=== PATIENT | female | born 1960 | race Caucasian/White ===

== ENCOUNTER 2019-04-22 09:24 | Observation (INO) ==
--- NOTE | 2019-04-22 09:37 | Emergency Department Note ---
Disposition Clinical Impression: UTI (urinary tract infection) Disposition: Admitted As Inpatient Condition: Good Time of Disposition: 09:30 Fall HPI - General Chief Complaint: ED Fall Stated Complaint: Fall Time Seen by Provider: 04/22/19 09:25 Source: patient Mode of arrival: EMS Limitations: no limitations Nursing Notes Reviewed: Yes Vital Signs Reviewed: Yes - History of Present Illness HPI Narrative: Patient arrives by EMS stating that she is feeling weak and has fallen several times this last week. She complains of bilateral hip and low back pain. She states that she became more weak after her doctor increased her Prozac dose from 20-40 mg. She had no problems with weakness before this but now is very weak and has trouble moving around. She is not able to eat or drink much as well. She denies any other complaints. She says she is hungry and thirsty. According to EMS the patient was able to stand and pivot and sit down without difficulty to get on the cot. Onset (ago): week(s) (1 week) Fall From: standing Place Fall Occurred: home Loss of Consciousness: none Prolonged Down Time?: no Symptoms Prior to Fall: other (generalized weakness) Context: other (weakness) Location of injury - extremities: Bilateral: hip Severity: mild Quality: aching Associated symptoms (after fall): Reports: weakness - Related Data Home Medications Medication Instructions Recorded Confirmed ALPRAZolam [Xanax 0.5 MG Tablet] 0.5 mg PO BID 04/25/16 04/22/19 Aspirin [Lo-Dose Aspirin EC] 81 mg PO DAILY 04/25/16 04/22/19 Atorvastatin Calcium [Lipitor] 20 mg PO DAILY 04/25/16 04/22/19 Divalproex (12 HR) [Depakote (12 1,000 mg PO BID 04/25/16 04/22/19 HR)] Ergocalciferol (VITAMIN D2) 50,000 unit PO QWEEK MDD 04/25/16 04/22/19 [Vitamin D2 (50,000 UNIT)] Esomeprazole Magnesium [Nexium] 40 mg PO DAILY 04/25/16 04/22/19 Gabapentin [Neurontin] 300 mg PO TID 04/25/16 04/22/19 HYDROcodone/Acet 10/325 mg [[place] 1 tab PO QID PRN 04/25/16 04/22/19 10-325 mg] Insulin ASPART [NovoLOG] 7 unit SQ QID 04/25/16 04/22/19 Insulin Glargine [Lantus] 22 unit SQ HS 04/25/16 04/22/19 Lisinopril [Zestril] 10 mg PO DAILY 04/25/16 04/22/19 Metformin HCl [Glucophage] 1,000 mg PO BID 04/25/16 04/22/19 Metoprolol XL (24 HR) Succ [Toprol 50 mg PO DAILY 04/25/16 04/22/19 XL] Promethazine [Phenergan] 25 mg PO Q6HR 04/25/16 04/22/19 Topiramate [Topamax] 50 mg PO BID 04/25/16 04/22/19 Allergies Allergy/AdvReac Type Severity Reaction Status Date / Time oxycodone [Oxycodone] Allergy Vomiting Verified 04/22/19 13:52 amitriptyline AdvReac See Verified 04/22/19 13:52 Comments morphine AdvReac See Verified 04/22/19 13:51 Comments All systems ED: reviewed and negative except as stated. Review of Systems: As Per HPI Constitutional: Reports: as per HPI, weakness (After increase the Prozac dose) Eyes: Denies: eye pain, eye discharge, vision change ENT ED: Denies: ear pain, throat pain, dental pain, hearing loss, epistaxis, congestion, dysphagia Cardiovascular: Denies: chest pain, palpitations, dyspnea on exertion, edema, syncope Respiratory: Denies: cough, dyspnea, wheezes, hemoptysis, stridor Gastrointestinal: Denies: abdominal pain, nausea, vomiting, diarrhea, constipation, hematemesis, melena, hematochezia Genitourinary: Denies: dysuria, frequency, hematuria, discharge Musculoskeletal: Reports: as per HPI, back pain, arthralgia Integumentary: Denies: rash, abrasion, lesions Neurological: Denies: headache, weakness, numbness, paresthesias, confusion, abnormal gait, vertigo Psychiatric: Reports: depression Endocrine: Denies: fatigue Hematological/Lymphatic: Denies: easy bleeding, easy bruising Allergic/Immunologic: Denies: facial swelling, urticaria Fall PMH - Past Medical History Medical history: Reports: diabetes, hyperlipidemia, hypertension, seizures, other Surgical history: Reports: , orthopedic, other Psychiatric history: Reports: anxiety - Social History Smoking Status: Never smoker Alcohol use: Reports: none Drug use: Reports: none Physical Exam - General Limitations: no limitations General appearance: alert, in no apparent distress - Head Head exam: atraumatic, normocephalic, normal inspection - Eye Eye exam: Present: normal appearance, PERRL, EOMI - ENT ENT exam: normal exam, normal oropharynx, mucous membranes moist - Neck Neck exam: Present: normal inspection, full ROM, trachea midline - Chest Chest inspection: Present: normal inspection, symmetric chest wall rise - Respiratory Respiratory exam: Present: normal lung sounds bilaterally - Cardiovascular Cardiovascular exam: Present: regular rate, normal rhythm, normal heart sounds - Abdominal Exam Abdominal exam: Present: soft, Non-Tender. Absent: tenderness, distention, guarding, rebound, rigidity - Extremities Exam Extremities exam: Present: normal inspection, full ROM, tenderness (Tenderness to bilateral hips and low back. Abrasions that appear healed on her right elbow that are nontender.). Absent: pedal edema - Back Exam Back exam: Present: tenderness - Neurological Exam Neurological exam: Present: alert, oriented X3 - Psychiatric Psychiatric exam: Present: normal affect, normal mood - Skin Skin exam: Present: warm, dry, intact, normal color Course Vital Signs Temperature 97.6 F 04/22/19 09:26 Pulse Rate 121 04/22/19 09:26 Respiratory Rate 20 04/22/19 09:26 Blood Pressure 179/98 04/22/19 09:26 O2 Sat by Pulse Oximetry 97 04/22/19 09:26 Temperature 97.6 F 04/22/19 09:26 Pulse Rate 122 04/22/19 14:13 Respiratory Rate 17 04/22/19 14:13 Blood Pressure 193/96 04/22/19 14:13 O2 Sat by Pulse Oximetry 97 04/22/19 14:13 Oxygen Delivery Oxygen Delivery Room Air Fall - [facility] Narrative Medical decision making narrative: Review the patient's medication list Case was discussed with Dr. Ruiz who has graciously accepted admission - Lab Data Lab results reviewed: Yes I reviewed the patient's lab results. Result diagrams: 04/22/19 10:00 04/22/19 10:00 Lab Results 04/22/19 04/22/19 04/22/19 Range/Units 10:00 10:00 11:10 WBC 10.8 (4.3-11.1) K/mcL RBC 4.02 (3.82-4.97) M/mcL Hgb 13.0 (11.5-15.4) g/dL Hct 38.0 (35.3-44.9) % MCV 94.5 (83.0-100.0) fL MCH 32.3 (28.0-33.3) pg MCHC 34.2 (31.6-35.5) g/dL RDW 13.3 (11.5-14.5) % Plt Count 264 (140-400) K/mcL MPV 9.3 L (9.4-12.4) fL Immature Gran % 0.8 (0-4) % Seg Neutrophils % 71.4 % Lymphocytes % 18.3 % Monocytes % 9.0 % Eosinophils % 0.2 % Basophils % 0.3 % Neutrophils # 7.7 (1.6-8.9) K/mcL Lymphocytes # 2.0 (0.6-4.6) K/mcL Monocytes # 1.0 (0.0-1.3) K/mcL Eosinophils # 0.0 (0.0-0.6) K/mcL Basophils # 0.0 (0.0-0.2) K/mcL Sodium 134 L (136-145) mEq/L Potassium 4.2 (3.5-5.1) mEq/L Chloride 101 (98-107) mEq/L Carbon Dioxide 14 L (23-29) mEq/L BUN 23 H (6-20) mg/dL Creatinine 0.91 (0.60-1.20) mg/dL Est GFR ( Amer) > 60 (> 60) Est GFR (Non-Af Amer) > 60 (> 60) BUN/Creatinine Ratio 25 (6-26) Glucose 304 H (70-105) mg/dL Calculated Osmolality 293 (280-300) Calcium 9.4 (8.6-10.3) mg/dL Total Bilirubin 0.3 (0.3-1.0) mg/dL AST 12 L (13-39) Units/L ALT 7 (7-52) Units/L Alkaline Phosphatase 97 (34-104) Units/L Troponin I < 0.03 (< 0.04) ng/mL Serum Total Protein 7.6 (6.4-8.9) g/dL Albumin 4.0 (3.5-5.7) g/dL Globulin 3.6 H (2.4-3.5) g/dL Albumin/Globulin Ratio 1.1 (1.1-2.2) Urine Color Yellow (Yellow) Urine Clarity Clear (Clear) Urine pH 5.5 (5.0-8.0) pH Units Ur Specific [place] 1.020 (1.010-1.025) Urine Protein Trace (Neg-Trace) mg/dL Urine Glucose (UA) 500 H (Normal) mg/dL Urine Ketones >=160 H (Negative) mg/dL Urine Blood Small H (Negative) Urine Nitrite Negative (Negative) Urine Bilirubin Small H (Negative) Urine Urobilinogen Normal (Normal) mg/dL Ur Leukocyte Esterase Trace H (Negative) Urine Microscopic RBC 3-5 H (0-3) per hpf Urine Microscopic WBC 5-15 H (0-3) per hpf Ur Squamous Epith Cells Few (None-Few) per lpf Urine Bacteria Few (None-Few) per hpf Hyaline Casts Few (None-Few) per lpf Urine Mucus Few (Few) Ur Culture Indicated? YES A (NO) - Radiology Data Radiology results reviewed: Yes I reviewed the patient's radiology results. - EKG Data EKG attestation: Yes I reviewed and interpreted this EKG. EKG results narrative: EKG shows heart rate of [address] intervals 118 ms QRS duration 84 ms QT interval 301 QTC 427 R axis of 60 degrees. Shows sinus tachycardia with borderline ST depression diffuse most likely rate dependent
[2019-04-22] MEDS ORDERED: 0.9 % Sodium Chloride 1,000 ML IVC ONE (09:38)
[2019-04-22 10:06] LABS: Basophils % 0.3 %; Eosinophils % 0.2 %; Immature Granulocytes % 0.8 % (0-4); Lymphocytes % 18.3 %; Mean Corpuscular HGB Conc 34.2 g/dL (31.6-35.5); Mean Corpuscular Hemoglobin 32.3 pg (28.0-33.3); Mean Corpuscular Volume 94.5 fL (83.0-100.0); Mean Platelet Volume 9.3 fL (9.4-12.4); Neutrophils # 7.7 K/mcL (1.6-8.9); Platelet Count 264 K/mcL (140-400); Red Blood Count 4.02 M/mcL (3.82-4.97); Red Cell Distribution Width 13.3 % (11.5-14.5); Segmented Neutrophils % 71.4 %; White Blood Count 10.8 K/mcL (4.3-11.1)
[2019-04-22 10:23] LABS: Alanine Aminotransferase 7 Units/L (7-52); Albumin/Globulin Ratio 1.1 (1.1-2.2); Alkaline Phosphatase 97 Units/L (34-104); Aspartate Amino Transferase 12 Units/L (13-39); BUN/Creatinine Ratio 25 (6-26); Bilirubin,Total 0.3 mg/dL (0.3-1.0); Blood Urea Nitrogen 23 mg/dL (6-20); Calcium 9.4 mg/dL (8.6-10.3); Carbon Dioxide 14 mEq/L (23-29); Chloride 101 mEq/L (98-107); Globulin 3.6 g/dL (2.4-3.5); Glucose 304 mg/dL (70-105); Osmolality,Calculated 293 (280-300); Potassium 4.2 mEq/L (3.5-5.1); Sodium 134 mEq/L (136-145); Total Protein 7.6 g/dL (6.4-8.9); eGFR For African Americans > 60 (> 60); eGFR For Non-African Americans > 60 (> 60)
[2019-04-22 10:27] LABS: Troponin I < 0.03 ng/mL (< 0.04)
[2019-04-22 11:19] LABS: Bilirubin,Urine Small (Negative); Blood,Urine Small (Negative); Clarity,Urine Clear (Clear); Color,Urine Yellow (Yellow); Glucose,Urine (UA) 500 mg/dL (Normal); Ketones,Urine >=160 mg/dL (Negative); Leukocyte Esterase,Urine Trace (Negative); Nitrite,Urine Negative (Negative); PH,Urine 5.5 pH Units (5.0-8.0); Protein,Urine Trace mg/dL (Neg-Trace); Urobilinogen,Urine Normal (Normal)
[2019-04-22 11:30] LABS: Bacteria,Urine Few per hpf (None-Few); Hyaline Casts,Urine Few per lpf (None-Few); Mucus,Urine Few (Few); Squamous Epithelial Cell,Urine Few per lpf (None-Few)
[2019-04-22] MEDS ORDERED: cefTRIAXone 1,000 MG in 0.9 % Sodium Chloride Mini Bag 100 ML IVPB ONE (11:55)
[2019-04-22] MEDS ORDERED: Metoprolol XL (24 HR) Succ 50 MG TAB.ER.24H PO ONE (13:55)
[2019-04-22] MEDS ORDERED: Divalproex (12 HR) 500 MG TABLET PO SCH ×2 (14:00→21:00)
--- NOTE | 2019-04-22 14:36 | Electrocardiograph Report ---
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
[2019-04-22] MEDS ORDERED: Naloxone 0.4 MG/ML INJ IVP PRN (15:27)
[2019-04-22] MEDS ORDERED: Insulin LISPRO 300 UNITS/3 ML VIAL SQ SCH (16:30)
[2019-04-22] MEDS: 0.9 % Sodium Chloride 1,000 ML IVC SCH ×2 (16:55→23:44)
[2019-04-22] MEDS: *HR* Metformin 500 MG TABLET PO SCH (16:56)
[2019-04-22] MEDS: *HR* HYDROcodone/Acet 10/325 mg TABLET PO PRN (16:56)
[2019-04-22] MEDS: Gabapentin 300 MG CAPSULE PO SCH ×2 (16:56→20:58)
[2019-04-22] MEDS: Insulin LISPRO 300 UNITS/3 ML VIAL SQ SCH ×3 (16:56→20:59)
[2019-04-22] MEDS: Topiramate 25 MG TABLET PO SCH (20:58)
[2019-04-22] MEDS: Divalproex (12 HR) 250 MG TABLET PO SCH (20:58)
[2019-04-22] MEDS: ALPRAZolam 0.5 MG TABLET PO SCH (20:58)
[2019-04-22] MEDS: Insulin DETEMIR 100 UNIT/ML X5UNITS SQ SCH (20:59)
[2019-04-23 06:10] LABS: Basophils % 0.3 %; Eosinophils # 0.1 K/mcL (0.0-0.6); Eosinophils % 0.8 %; Hematocrit 38.2 % (35.3-44.9); Hemoglobin 12.5 g/dL (11.5-15.4); Immature Granulocytes % 0.6 % (0-4); Lymphocytes # 3.8 K/mcL (0.6-4.6); Lymphocytes % 37.1 %; Mean Corpuscular HGB Conc 32.7 g/dL (31.6-35.5); Mean Corpuscular Hemoglobin 31.9 pg (28.0-33.3); Mean Corpuscular Volume 97.4 fL (83.0-100.0); Mean Platelet Volume 9.8 fL (9.4-12.4); Monocytes # 1.2 K/mcL (0.0-1.3); Monocytes % 11.4 %; Neutrophils # 5.2 K/mcL (1.6-8.9); Platelet Count 264 K/mcL (140-400); Red Blood Count 3.92 M/mcL (3.82-4.97); Red Cell Distribution Width 13.8 % (11.5-14.5); Segmented Neutrophils % 49.8 %; White Blood Count 10.4 K/mcL (4.3-11.1)
[2019-04-23 06:28] LABS: BUN/Creatinine Ratio 22 (6-26); Blood Urea Nitrogen 17 mg/dL (6-20); Calcium 8.6 mg/dL (8.6-10.3); Carbon Dioxide 21 mEq/L (23-29); Chloride 107 mEq/L (98-107); Glucose 177 mg/dL (70-105); Osmolality,Calculated 290 (280-300); Potassium 4.1 mEq/L (3.5-5.1); Sodium 137 mEq/L (136-145); eGFR For African Americans > 60 (> 60); eGFR For Non-African Americans > 60 (> 60)
[2019-04-23] MEDS: ALPRAZolam 0.5 MG TABLET PO SCH (08:11)
[2019-04-23] MEDS: Aspirin Enteric Coated 81 MG Tablet PO SCH (08:11)
[2019-04-23] MEDS: Divalproex (12 HR) 250 MG TABLET PO SCH ×2 (08:11→21:45)
[2019-04-23] MEDS: *HR* Metformin 500 MG TABLET PO SCH ×2 (08:11→17:10)
[2019-04-23] MEDS: Cholecalciferol (D-3) 1,000 UNIT (25MCG) TABLET PO SCH (08:11)
[2019-04-23] MEDS: Gabapentin 300 MG CAPSULE PO SCH ×3 (08:12→21:45)
[2019-04-23] MEDS: Metoprolol XL (24 HR) Succ 50 MG TAB.ER.24H PO SCH (08:12)
[2019-04-23] MEDS: Insulin LISPRO 300 UNITS/3 ML VIAL SQ SCH ×5 (08:12→21:46)
[2019-04-23] MEDS: Topiramate 25 MG TABLET PO SCH ×2 (08:12→21:45)
--- NOTE | 2019-04-23 09:53 | Internal Med History&Physical ---
Date of Encounter: 04/23/19 Time of Encounter: 09:25 Assessment and Plan (1) Multiple falls Current visit: Yes Status: Acute Suspect primarily due to medication effect. Prozac and Xanax will be held. Depakote level will be checked, orthostatic vital signs will be checked, and further workup as needed. (2) Hypertension Current visit: Yes Status: Chronic Monitor blood pressure and adjust medication doses as needed. Qualifiers: Hypertension type: essential hypertension Qualified Code(s): I10 - Essential (primary) hypertension (3) DM type 2 (diabetes mellitus, type 2) Current visit: Yes Status: Chronic Hemoglobin A1c was 7.2% on 02/24/2019. Continue Lantus, Glucophage, and Accu- Cheks with SSI. 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 Check Depakote level. (5) UTI (urinary tract infection) Current visit: Yes Status: Acute She was given Rocephin in emergency room. Urine culture has been ordered. Qualifiers: Urinary tract infection type: site unspecified Hematuria presence: without hematuria Qualified Code(s): N39.0 - Urinary tract infection, site not specified (6) Chronic low back pain Current visit: Yes Status: Chronic Continue [place] and Neurontin. Qualifiers: Back pain laterality: unspecified Sciatica presence: unspecified whether sciatica present Qualified Code(s): M54.5 - Low back pain; G89.29 - Other chronic pain Internal Medicine - H&P: HPI Chief complaint: Falls Admitted From: Emergency Dept Plans for Post Hospital Care: Home History of present illness: Ms. Rios is a 59 year old female who came to emergency room stating she had multiple falls in the past week since Prozac dose was increased from 20 g daily to 40 mg daily 1 week ago. She reports having no falls on the lower dose. She also takes Xanax for diagnoses of anxiety. She was evaluated emergency room and was found to have evidence of UTI and poorly controlled hypertension. She was admitted to [facility] floor for ongoing care needs. She has anxiety and depression but denies other mental health diagnoses. Past Med Surg Social Fam HX - Past Medical History Medical history: diabetes, hyperlipidemia, hypertension, seizures, other Additional medical history: epilepsy, chronic pain Psychiatric history: anxiety - Past Surgical History Surgical History: , orthopedic, other Additional surgical history: chronic pain,uterine fibroids. baCK - Social History Smoking Status: Current every day smoker Smokeless Tobacco Status: No Alcohol use: none Drug use: none Internal Medicine - H&P: Meds ALPRAZolam [Xanax 0.5 MG Tablet] 0.5 mg PO BID 04/25/16 [History] Aspirin [Lo-Dose Aspirin EC] 81 mg PO DAILY 04/25/16 [History] Atorvastatin Calcium [Lipitor] 20 mg PO DAILY 04/25/16 [History] Divalproex (12 HR) [Depakote (12 HR)] 1,000 mg PO BID 04/25/16 [History] Ergocalciferol (VITAMIN D2) [Vitamin D2 (50,000 UNIT)] 50,000 unit PO QWEEK MDD 04/25/16 [History] Esomeprazole Magnesium [Nexium] 40 mg PO DAILY 04/25/16 [History] Gabapentin [Neurontin] 300 mg PO TID 04/25/16 [History] HYDROcodone/Acet 10/325 mg [[place] 10-325 mg] 1 tab PO QID PRN 04/25/16 [History] Insulin ASPART [NovoLOG] 7 unit SQ QID 04/25/16 [History] Insulin Glargine [Lantus] 22 unit SQ HS 04/25/16 [History] Lisinopril [Zestril] 10 mg PO DAILY 04/25/16 [History] Metformin HCl [Glucophage] 1,000 mg PO BID 04/25/16 [History] Metoprolol XL (24 HR) Succ [Toprol XL] 50 mg PO DAILY 04/25/16 [History] Promethazine [Phenergan] 25 mg PO Q6HR 04/25/16 [History] Topiramate [Topamax] 50 mg PO BID 04/25/16 [History] Allergy/AdvReac Type Severity Reaction Status Date / Time oxycodone [Oxycodone] Allergy Vomiting Verified 06/25/19 13:52 amitriptyline AdvReac See Verified 04/22/19 13:52 Comments morphine AdvReac See Verified 04/22/19 13:51 Comments All Systems PM: A 10-system review of systems was performed and is negative for pertinent findings except as documented above in the HPI. Review of systems: Gen.: She states her weight is been stable for several months Cardiovascular: She has history of hypertension but denies [place] heart failure angina DVT or pulmonary embolus Respiratory: She has smoked since age 14 up to one and a half packs per day. She has not been diagnosed with chronic lung disease and does not use home oxygen. 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 She reports her last seizure was approximately one year ago. She has occasional migraine headaches. She denies large distribution strokes. She has been diagnosed with diabetic peripheral neuropathy. Endocrine: She was diagnosed with DM 2 approximately age 30. She denies thyroid disease or hyperlipidemia Hematology/oncology: She denies blood disorders cancers or anemia Psychiatric: As per history of present illness [place] skeletal: She had low back surgery approximately 2000 and has chronic low back pain. She has DJD but denies gout or other bone joint or muscle disorders. - Constitutional Vitals: Temp Pulse Resp BP Pulse Ox 97.7 F 82 14 159/75 99 04/23/19 06:31 04/23/19 06:31 04/23/19 06:31 04/23/19 06:31 04/23/19 06:31 Exam: Gen.: She is a well-developed well-nourished female resting comfortably in bed who appears lethargic but awakens and answers questions appropriately. HEENT: Head is atraumatic and normal cephalic. Eyes: EOMI. There is no scleral icterus. Mouth: Mucosa is moist. Neck: Supple and nontender. There is no thyromegaly or adenopathy noted. Heart: Regular without murmurs gallops or ectopics Lungs: No wheezes or crackles are heard. Abdomen: Soft and nontender. No masses or guarding are noted. Extremities: There is no cyanosis edema or clubbing noted. Dorsalis pedis and posterior tibial pulses are trace to 1+ palpable bilaterally. Neurologic: Mental status: She is talkative and a good historian. Cranial nerves: Smile is symmetric. Forehead wrinkles bilaterally. Tongue protrudes midline. EOMI. Motor: There is no pronator drift. Cerebellar: Finger to nose is intact bilaterally. Skin: Warm and dry Internal Med - H&P Results - Labs CBC & Chem 7: 04/23/19 05:36 04/23/19 05:36 Labs: Short CBC 04/22/19 04/23/19 Range/Units 10:00 05:36 WBC 10.8 10.4 (4.3-11.1) K/mcL Hgb 13.0 12.5 (11.5-15.4) g/dL Hct 38.0 38.2 (35.3-44.9) % Plt Count 264 264 (140-400) K/mcL Neutrophils # 7.7 5.2 (1.6-8.9) K/mcL BMP 04/22/19 04/23/19 10:00 05:36 Sodium 134 L 137 Potassium 4.2 4.1 Chloride 101 107 Carbon Dioxide 14 L 21 L BUN 23 H 17 Creatinine 0.91 0.76 Glucose 304 H 177 H Calcium 9.4 8.6 Cardiac Enzymes 04/22/19 Range/Units 10:00 Troponin I < 0.03 (< 0.04) ng/mL Liver Function 04/22/19 Range/Units 10:00 Total Bilirubin 0.3 (0.3-1.0) mg/dL AST 12 L (13-39) Units/L ALT 7 (7-52) Units/L Alkaline Phosphatase 97 (34-104) Units/L Albumin 4.0 (3.5-5.7) g/dL Urine 04/22/19 Range/Units 11:10 Urine Color Yellow (Yellow) Urine Clarity Clear (Clear) Urine pH 5.5 (5.0-8.0) pH Units Ur Specific [place] 1.020 (1.010-1.025) Urine Protein Trace (Neg-Trace) mg/dL Urine Glucose (UA) 500 H (Normal) mg/dL - Impressions ITS Impressions Chest X-Ray 04/22/19 09:38 IMPRESSION: No acute cardiopulmonary findings. D/ / Shelby Parson MD / Shelby Parson MD Interpreting Provider: Shelby Parson MD Hip/Pelvis X-Ray 04/22/19 09:38 IMPRESSION: Degenerative changes of the hip joints. No acute osseous abnormality. D/ / Shelby Parson MD / Shelby Parson MD Interpreting Provider: Shelby Parson MD Lumbar Spine X-Ray 04/22/19 09:38 IMPRESSION: No acute abnormalities. If there is persistent clinical concern or focal neurologic deficit consider CT or MRI. Multilevel degenerative changes appear worsened from prior CT abdomen and pelvis 06/20/2011. Stable appearance to prior surgical intervention to lower lumbar spine with orthopedic hardware present at L4-5. No evidence for hardware complication is seen. Grade 1 anterolisthesis of L3 on L4 likely relating to the degenerative changes. D/ / 04/22/2019 10:45:43 Jorge Aceves MD / Zoe Hollis Interpreting Provider: Jorge Aceves MD
[2019-04-23] MEDS: cefTRIAXone 1,000 MG in Water for inj. (sterile) 10 ML IVP SCH (12:11)
[2019-04-23] MEDS: Lactobacillus 1 EACH CAP.SPRINK PO SCH (21:45)
[2019-04-23] MEDS: Insulin DETEMIR 100 UNIT/ML X5UNITS SQ SCH (21:45)
[2019-04-24] MEDS: *HR* Metformin 500 MG TABLET PO SCH ×2 (07:38→16:54)
[2019-04-24] MEDS: Insulin LISPRO 300 UNITS/3 ML VIAL SQ SCH ×5 (07:38→21:23)
[2019-04-24] MEDS: Metoprolol XL (24 HR) Succ 50 MG TAB.ER.24H PO SCH (09:51)
[2019-04-24] MEDS: cefTRIAXone 1,000 MG in Water for inj. (sterile) 10 ML IVP SCH (10:00)
[2019-04-24] MEDS: Cholecalciferol (D-3) 1,000 UNIT (25MCG) TABLET PO SCH (10:01)
[2019-04-24] MEDS: Aspirin Enteric Coated 81 MG Tablet PO SCH (10:01)
[2019-04-24] MEDS: Gabapentin 300 MG CAPSULE PO SCH ×3 (10:01→21:21)
[2019-04-24] MEDS: Topiramate 25 MG TABLET PO SCH ×2 (10:01→21:21)
[2019-04-24] MEDS: Divalproex (12 HR) 250 MG TABLET PO SCH ×2 (10:01→21:22)
[2019-04-24] MEDS: Lactobacillus 1 EACH CAP.SPRINK PO SCH (10:01)
--- NOTE | 2019-04-24 10:46 | Internal Med Progress Note ---
Date of Encounter: 04/24/19 Time of Encounter: 10:22 - Assessment and plan (1) Multiple falls Current Visit: Yes Status: Acute Assessment and plan: April 24. She will continue with therapy intervention and reassessment will be done tomorrow. (2) Hypertension Current Visit: Yes Status: Chronic Assessment and plan: April 24. Blood pressure has been borderline low. Lisinopril will be discontinued. Continue metoprolol. Qualifiers: Hypertension type: essential hypertension Qualified Code(s): I10 - Essential (primary) hypertension (3) DM type 2 (diabetes mellitus, type 2) Current Visit: Yes Status: Chronic Assessment and plan: April 24. Hemoglobin A1c was 7.2% on 02/24/2019. Continue Lantus, Glucophage, and Accu-Cheks with SSI. 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 Depakote level satisfactory at 67. Continue present dose. (5) UTI (urinary tract infection) Current Visit: Yes Status: Acute Assessment and plan: April 24. Urine culture showed no significant growth. Antibiotics and probiotics will be discontinued. Qualifiers: Urinary tract infection type: site unspecified Hematuria presence: without hematuria Qualified Code(s): N39.0 - Urinary tract infection, site not specified (6) Chronic low back pain Current Visit: Yes Status: Chronic Assessment and plan: April 24. Continue [place] and Neurontin. Qualifiers: Back pain laterality: unspecified Sciatica presence: unspecified whether sciatica present Qualified Code(s): M54.5 - Low back pain; G89.29 - Other chronic pain (7) Insomnia Current Visit: Yes Status: Acute Assessment and plan: April 24. She reported she was taking 2 Xanax at bedtime prior to admission. I explained this was probably increasing her risk of falling from excessive sedation. She will remain off this for now. Qualifiers: Insomnia type: unspecified Qualified Code(s): G47.00 - Insomnia, unspecified - Subjective Interval history: April 24. She has no new complaints and feels better. - Constitutional Vitals: Temp Pulse Resp BP Pulse Ox 97.6 F 74 12 98/62 96 04/24/19 07:07 04/24/19 07:07 04/24/19 07:07 04/24/19 07:07 04/24/19 10:08 Exam: She is sitting in a chair at bedside resting comfortably and appears in no acute distress. Her affect is bright and cheerful. She is much more awake and alert today. I reviewed her medications and lab results. I spoke with physical therapist personally about her evaluation. Internal Medicine: Result - Labs CBC & Chem 7: 04/23/19 05:36 04/23/19 05:36 Consult Discharge Plan - Plan Referrals: Odalys Moura, ROUTING EQUIPMENT TENDER [Primary Care Provider] - 1 week
[2019-04-24] MEDS: Insulin DETEMIR 100 UNIT/ML X5UNITS SQ SCH (21:22)
[2019-04-25 07:32] VITALS: BP 159/82
[2019-04-25] MEDS: Topiramate 25 MG TABLET PO SCH (08:12)
[2019-04-25] MEDS: Divalproex (12 HR) 250 MG TABLET PO SCH (08:12)
[2019-04-25] MEDS: *HR* Metformin 500 MG TABLET PO SCH (08:12)
[2019-04-25] MEDS: Aspirin Enteric Coated 81 MG Tablet PO SCH (08:13)
[2019-04-25] MEDS: *HR* HYDROcodone/Acet 10/325 mg TABLET PO PRN (08:13)
[2019-04-25] MEDS: Gabapentin 300 MG CAPSULE PO SCH (08:13)
[2019-04-25] MEDS: Metoprolol XL (24 HR) Succ 50 MG TAB.ER.24H PO SCH (08:13)
[2019-04-25] MEDS: Cholecalciferol (D-3) 1,000 UNIT (25MCG) TABLET PO SCH (08:13)
[2019-04-25] MEDS: Insulin LISPRO 300 UNITS/3 ML VIAL SQ SCH (08:14)
--- NOTE | 2019-04-25 08:48 | Discharge Summary ---
Date of Encounter: 04/26/19 Time of Encounter: 08:44 - Discharge Diagnosis (1) Immobility Priority: Primary Status: Chronic Comments: Pt with immobility with multifactoral etiology including polyneuropathy and osteoarthritis. She was seen by PT and independent in ADLs at time of discharge. She was felt to benefit from home health services, which will be arranged. She is to continue with home therapy. (2) Multiple falls Priority: Secondary Status: Resolved Comments: Exacerbation of immobility with falls likely secondary to fluoxetine dose increase and alprazolam. Fluoxetine was discontinued and patient requested to remain off medication for now rather than continue a reduced dose. She will be using alprazolam only as needed at a reduced dose. She was ambulating without falls at time of discharge. 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 Rios is a 59 year old female that presented to ED with increased falls and generalized weakness which began after recent SSRI dose increase. Initial evaluation and work-up negative outside of possible UTI. Pt was treated with rocephin, which was later discontinued after negative urine culture. Her mobility improved to baseline with supportive care and physical therapy. Home health services will be arranged. She wishes to remain off SSRI and will use benzodiazepine at reduced dose and only as needed. Discharge discussed with: patient - Time Spent with Patient Total time spent providing and/or coordinating discharge services: Time spent: Greater than 30 minutes - Discharge Medications Prescriptions: Continued Gabapentin [Neurontin] 300 mg PO TID Divalproex (12 HR) [Depakote (12 HR)] 1,000 mg PO BID Metoprolol XL (24 HR) Succ [Toprol Xl] 50 mg PO DAILY Lisinopril [Zestril] 10 mg PO DAILY Insulin ASPART [NovoLOG] 7 unit SQ QID Promethazine [Phenergan] 25 mg PO Q6HR HYDROcodone/Acet 10/325 mg [Wrights 10-325 mg] 1 tab PO QID PRN PRN Reason: Pain Topiramate [Topamax] 50 mg PO BID Metformin HCl [Glucophage] 1,000 mg PO BID Insulin Glargine [Lantus] 22 unit SQ HS Esomeprazole Magnesium [Nexium] 40 mg PO DAILY Ergocalciferol (VITAMIN D2) [Vitamin D2 (50,000 UNIT)] 50,000 unit PO QWEEK Atorvastatin Calcium [Lipitor] 20 mg PO DAILY Aspirin [Lo-Dose Aspirin EC] 81 mg PO DAILY Changed ALPRAZolam [Xanax 0.5 MG Tablet] 0.5 tab PO DAILY PRN #0 PRN Reason: Anxiety Home Medications: Aspirin [Lo-Dose Aspirin EC] 81 mg PO DAILY 04/25/16 [History] Atorvastatin Calcium [Lipitor] 20 mg PO DAILY 04/25/16 [History] Divalproex (12 HR) [Depakote (12 HR)] 1,000 mg PO BID 04/25/16 [History] Ergocalciferol (VITAMIN D2) [Vitamin D2 (50,000 UNIT)] 50,000 unit PO QWEEK MDD 04/25/16 [History] Esomeprazole Magnesium [Nexium] 40 mg PO DAILY 04/25/16 [History] Gabapentin [Neurontin] 300 mg PO TID 04/25/16 [History] HYDROcodone/Acet 10/325 mg [Wrights 10-325 mg] 1 tab PO QID PRN 04/25/16 [History] Insulin ASPART [NovoLOG] 7 unit SQ QID 04/25/16 [History] Insulin Glargine [Lantus] 22 unit SQ HS 04/25/16 [History] Lisinopril [Zestril] 10 mg PO DAILY 04/25/16 [History] Metformin HCl [Glucophage] 1,000 mg PO BID 04/25/16 [History] Metoprolol XL (24 HR) Succ [Toprol Xl] 50 mg PO DAILY 04/25/16 [History] Promethazine [Phenergan] 25 mg PO Q6HR 04/25/16 [History] Topiramate [Topamax] 50 mg PO BID 04/25/16 [History] ALPRAZolam [Xanax 0.5 MG Tablet] 0.5 tab PO DAILY PRN #0 04/25/19 [Rx] Allergies/Adverse Reactions: Allergy/AdvReac Type Severity Reaction Status Date / Time oxycodone [Oxycodone] Allergy Vomiting Verified 04/22/19 13:52 amitriptyline AdvReac See Verified 04/22/19 13:52 Comments morphine AdvReac See Verified 04/22/19 13:51 Comments Date of admission: 04/22/19 14:16 Primary care physician: Odalys Moura CNP Consults: 04/23/19 17:42 Consult to Occupational Therapy [CONS] Routine Comment: Evaluate, develop and implement POC Reason for Consult: falls Does patient have active BEDREST order?: No Is patient medically & hemodynamically stable?: Yes Patient assessed for mobility or mobilized this visit?: Yes Consult to Physical Therapy [CONS] Routine Comment: Evaluate, develop and implement POC Reason for Consult: falls Does patient have active BEDREST order?: No Is patient medically & hemodynamically stable?: Yes Patient assessed for mobility or mobilized this visit?: Yes Discharging clinician: Miguel Miranda Anticipated date of discharge: 04/25/19 - Constitutional Vitals: Temp Pulse Resp BP Pulse Ox 98.4 F 94 18 159/82 96 04/25/19 07:23 04/25/19 07:23 04/25/19 07:23 04/25/19 07:23 04/25/19 07:23 Exam: Gen: Lying in bed, NAD HEENT: NC, AT Neck: Trachea midline, no mass Pulm: No respiratory distress, CTAB CV: Normal S1 and S2, RRR Abdomen: Soft, ND, NT Ext: No C/C/E Neuro: No appreciable motor/sensor deficits Skin: Warm and dry, no rash Psych: A&Ox3 - Patient Status Disposition: Home Health Service Condition: Good Functional capacity at discharge: independent ambulation Overall status at discharge: patient is progressing back to baseline - Discharge Instructions Follow Up With: Odalys Moura CNP [Primary Care Provider] - 04/30/19 9:00 am - Diet and Activity Activity: as per physical therapy Diet: advance to your usual diet
--- NOTE | 2019-04-25 09:14 | Physician Discharge Referral ---
Home Health/Hosp Referral Info Transfer to: Home Health Attending Provider: mallorie pruitt Provider in Charge Post Discharge: PCP - Diagnosis (1) Immobility Priority: Primary Status: Chronic (2) Multiple falls Priority: Secondary Status: Resolved (3) Hypertension Priority: Secondary Status: Chronic (4) DM type 2 (diabetes mellitus, type 2) Priority: Secondary Status: Chronic (5) Seizure disorder Priority: Secondary Status: Acute - Respiratory Orders Smoking Cessation: Smoking cessation has been advised. For more information, call the [place] Tobacco Quit Line at 5-996-SVKA-NOW. - Diet/Nutrition Diet/Nutrition Orders: Regular - Activity Activity: List: as per PT - Services Needed Following services are medically necessary services: Nursing, Home Health Aide, Physical Therapy, Occupational Therapy - Transfer Medications Home Medications: Aspirin [Lo-Dose Aspirin EC] 81 mg PO DAILY 04/25/16 [History] Atorvastatin Calcium [Lipitor] 20 mg PO DAILY 04/25/16 [History] Divalproex (12 HR) [Depakote (12 HR)] 1,000 mg PO BID 04/25/16 [History] Ergocalciferol (VITAMIN D2) [Vitamin D2 (50,000 UNIT)] 50,000 unit PO QWEEK MDD 04/25/16 [History] Esomeprazole Magnesium [Nexium] 40 mg PO DAILY 04/25/16 [History] Gabapentin [Neurontin] 300 mg PO TID 04/25/16 [History] HYDROcodone/Acet 10/325 mg [[place] 10-325 mg] 1 tab PO QID PRN 04/25/16 [History] Insulin ASPART [NovoLOG] 7 unit SQ QID 04/25/16 [History] Insulin Glargine [Lantus] 22 unit SQ HS 04/25/16 [History] Lisinopril [Zestril] 10 mg PO DAILY 04/25/16 [History] Metformin HCl [Glucophage] 1,000 mg PO BID 04/25/16 [History] Metoprolol XL (24 HR) Succ [Toprol Xl] 50 mg PO DAILY 04/25/16 [History] Promethazine [Phenergan] 25 mg PO Q6HR 04/25/16 [History] Topiramate [Topamax] 50 mg PO BID 04/25/16 [History] ALPRAZolam [Xanax 0.5 MG Tablet] 0.5 tab PO DAILY PRN #0 04/25/19 [Rx] Allergies/Adverse Reactions: Allergy/AdvReac Type Severity Reaction Status Date / Time oxycodone [Oxycodone] Allergy Vomiting Verified 04/22/19 13:52 amitriptyline AdvReac See Verified 04/22/19 13:52 Comments morphine AdvReac See Verified 04/22/19 13:51 Comments Certification: Further, I certify that my clinical findings support that this patient is homebound (i.e. absences from home require considerable and taxing effort and are for medical reasons or church services or infrequently or short duration when for other reasons) because: considerable immobility secondary to neuropathy and osteoarthritis Homebound Reason: Leaving home requires considerable and taxing effort due to condition Attestation: My signature below is to certify that this patient is under my care and that I, or nurse practitioner, or a physician's dental laboratory assistant working with me, has a [id number] encounter with this patient.
== END 2019-04-25 12:50 | disposition home health service (06) ==
LOC: EMEROOPIK 09:24 → INPPIK 09:24
PROVIDERS: ADMIT Internal Medicine; ATTEND Internal Medicine

== ENCOUNTER 2019-05-29 17:20 | Observation (INO) ==
[2019-05-29] MEDS ORDERED: Acetaminophen 325 MG TABLET PO ONE (17:27)
[2019-05-29] MEDS ORDERED: 0.9 % Sodium Chloride 1,000 ML IVC ONE ×2 (17:27→17:30)
--- NOTE | 2019-05-29 17:31 | Emergency Department Note ---
Disposition Clinical Impression: Acute renal insufficiency, SIRS (systemic inflammatory response syndrome), Weakness, Anorexia Altered mental status Qualifiers: Altered mental status type: disorientation Qualified Code(s): R41.0 - Disorientation, unspecified Disposition: Admitted As Inpatient Condition: Fair Referrals: NONE,PCP [Non-Partnered Physician] - Forms: ED Satisfaction Letter Time of Disposition: 18:53 General Adult HPI - General Chief complaint: ED Psychiatric Symptoms Stated complaint: weight loss and depression Time Seen by Provider: 05/29/19 17:26 Source: patient, EMS Mode of arrival: EMS Limitations: altered mental status Nursing Notes Reviewed: Yes Vital Signs Reviewed: Yes - History of Present Illness HPI Narrative: Patient arrives by EMS with a chief complaint of "cannot eat" and "lost weight". She will repeat herself multiple times about how her weight is down from about 178 pounds 161. She states this is because she is "very depressed" and has had anorexia. She has been eating well since she "had to put my Down" on April 19. When asked questions she often answers starting to talk about her weight and has to be redirected. She denies any headache or visual changes. She denies neck pain or stiffness. She has any chest pain, palpitation, cough or shortness of breath. She has abdominal pain or nausea but states she is just not eating. She has not had diarrhea or bloody or black stools. She denies any urinary co mplaints. Despite her feeling of being "very depressed" she denies any homicidal or suicidal ideation. She is on Prozac states she has been taking her regular medicines. The squad reports that she has had several admissions in the past for psychiatric reasons but I cannot confirm this in the EMR. She is been brought in by EMS emergency department and is seen immediately upon arrival. On arrival she is tachycardic, febrile 101.8 and has a systolic blood pressure between 80 and 90. She denies any localizing complaints for infection. - Related Data Home Medications Medication Instructions Recorded Confirmed Aspirin [Lo-Dose Aspirin EC] 81 mg PO DAILY 04/25/16 05/29/19 Divalproex (12 HR) [Depakote (12 1,000 mg PO BID 04/25/16 05/29/19 HR)] Esomeprazole Magnesium [Nexium] 40 mg PO DAILY 04/25/16 05/29/19 Gabapentin [Neurontin] 300 mg PO TID 04/25/16 05/29/19 HYDROcodone/Acet 10/325 mg [[place] 1 tab PO QID PRN 04/25/16 05/29/19 10-325 mg] Insulin ASPART [NovoLOG] 10 - 14 unit SQ QID 04/25/16 05/29/19 Insulin Glargine [Lantus] 18 unit SQ HS 04/25/16 05/29/19 Lisinopril [Zestril] 10 mg PO DAILY 04/25/16 05/29/19 Metformin HCl [Glucophage] 1,000 mg PO BID 04/25/16 05/29/19 Metoprolol XL (24 HR) Succ [Toprol 50 mg PO DAILY 04/25/16 05/29/19 Xl] Promethazine [Phenergan] 25 mg PO Q6HR 04/25/16 05/29/19 Topiramate [Topamax] 100 mg PO BID 04/25/16 05/29/19 ALPRAZolam [Xanax 0.5 MG Tablet] 0.5 tab PO BID PRN 05/29/19 05/29/19 Butalb/Acetaminophen/Caffeine 1 each PO BID 05/29/19 05/29/19 [Fioricet 50-300-40 mg Capsule] Cyclobenzaprine [Flexeril] 10 mg PO TID 05/29/19 05/29/19 Etodolac [Etodolac ER] 500 mg PO QAM 05/29/19 05/29/19 FLUoxetine HCl [Fluoxetine HCl] 40 mg PO DAILY 05/29/19 05/29/19 Oxybutynin [Ditropan] 5 mg PO BID 05/29/19 05/29/19 Tizanidine HCl [Zanaflex] 2 mg PO HS 05/29/19 05/29/19 Allergies Allergy/AdvReac Type Severity Reaction Status Date / Time oxycodone [Oxycodone] Allergy Vomiting Verified 04/22/19 13:52 amitriptyline AdvReac See Verified 04/22/19 13:52 Comments morphine AdvReac See Verified 04/22/19 13:51 Comments All systems ED: reviewed and negative except as stated. Past Medical History - Past Medical History Attestation: Yes The following information was validated with the patient. Source: patient, old records reviewed, nursing notes reviewed Medical history: Reports: arthritis, diabetes, hyperlipidemia, hypertension, migraine, seizures, other (Chronic low back pain). Denies: cancer, coronary artery disease, CVA, DVT, myocardial infarction, pulmonary embolus, thyroid disease, TIA Surgical history: Reports: , orthopedic, other (Lumbar fixation 2000, hand surgery), other (Ovarian cystectomy) Psychiatric history: Reports: anxiety [employer] history: Reports: uterine fibroids - Social History Smoking Status: Current every day smoker Smokeless Tobacco Status: No Alcohol use: Reports: none Drug use: Reports: none Physical Exam - General Limitations: no limitations General appearance: alert, in no apparent distress - Head Head exam: atraumatic, normocephalic, normal inspection - Eye Eye exam: Present: normal appearance, PERRL, EOMI, other (No light sensitivity). Absent: scleral icterus - ENT ENT exam: normal exam, normal oropharynx, mucous membranes dry - Neck Neck exam: Present: normal inspection, full ROM, trachea midline. Absent: tenderness, meningismus, lymphadenopathy - Chest Chest inspection: Present: normal inspection, symmetric chest wall rise - Respiratory Respiratory exam: Present: normal lung sounds bilaterally. Absent: respiratory distress, wheezes, accessory muscle use, prolonged expiratory phase - Cardiovascular Cardiovascular exam: Present: regular rate, normal rhythm, tachycardia, normal heart sounds - Abdominal Exam Abdominal exam: Present: soft, Non-Tender, normal bowel sounds. Absent: tenderness, distention, guarding, rebound, rigidity, mass, pulsatile mass Abdominal tenderness: Absent: RUQ, RLQ, suprapubic - Extremities Exam Extremities exam: Present: normal inspection, full ROM, normal capillary refill. Absent: tenderness, pedal edema, calf tenderness - Expanded Lower Extremity Exam Neurovascular/Tendon exam: Present: normal capillary refill Gait: not tested/not observed - Back Exam Back exam: Present: normal inspection, full ROM. Absent: tenderness, CVA tenderness (R), CVA tenderness (L) - Neurological Exam Neurological exam: Present: alert, CN II-XII intact (The patient's face appears to be a little flat but is symmetric and motion.), reflexes normal, other (Patient is tremulous. She has negative pronator drift. She both legs up off the bed against gravity). Absent: oriented X3 (Oriented to person and month), motor sensory deficit - Psychiatric Psychiatric exam: Present: anxious - Skin Skin exam: Present: warm, dry, intact, normal color. Absent: rash, diaphoresis, pallor Course Course Narrative: 1739: In obtaining a straight catheter urine, the patient has stated to the nurse that she has been having some burning with urination and some suprapubic abdominal discomfort with urination. 1849: Patient's presentation and workup have been discussed with Dr. Ruiz. Verbal orders have been obtained for her observation. The patient is requesting evaluation for jail placement and touching get her strength back. A social service consult will be ordered for the morning. Vital Signs Temperature 101.8 F H 05/29/19 17:23 Pulse Rate 113 05/29/19 17:23 Respiratory Rate 17 05/29/19 17:23 Blood Pressure 81/54 05/29/19 17:23 O2 Sat by Pulse Oximetry 95 05/29/19 17:23 Temperature 98.4 F 05/29/19 18:45 Pulse Rate 97 05/29/19 18:25 Respiratory Rate 17 05/29/19 18:25 Blood Pressure 100/54 05/29/19 18:25 O2 Sat by Pulse Oximetry 96 05/29/19 18:25 Oxygen Delivery Oxygen Delivery Room Air Medical Decision Making - Medical Records Medical records reviewed: Yes I reviewed the patient's medical records. The squad reported this patient has had previous admissions for psychiatric reasons. I cannot find any record in the EMR of psychiatric decompensation nor admission. - Lab Data Lab results reviewed: Yes I reviewed the patient's lab results. Result diagrams: 05/29/19 17:47 05/29/19 17:47 Lab Results 05/29/19 05/29/19 05/29/19 Range/Units 17:47 17:47 17:47 WBC 8.3 (4.3-11.1) K/mcL RBC 3.93 (3.82-4.97) M/mcL Hgb 12.5 (11.5-15.4) g/dL Hct 38.2 (35.3-44.9) % MCV 97.2 (83.0-100.0) fL MCH 31.8 (28.0-33.3) pg MCHC 32.7 (31.6-35.5) g/dL RDW 14.4 (11.5-14.5) % Plt Count 161 (140-400) K/mcL MPV 10.2 (9.4-12.4) fL Immature Gran % 1.0 (0-4) % Seg Neutrophils % 64.4 % Lymphocytes % 24.9 % Monocytes % 8.2 % Eosinophils % 1.0 % Basophils % 0.5 % Neutrophils # 5.4 (1.6-8.9) K/mcL Lymphocytes # 2.1 (0.6-4.6) K/mcL Monocytes # 0.7 (0.0-1.3) K/mcL Eosinophils # 0.1 (0.0-0.6) K/mcL Basophils # 0.0 (0.0-0.2) K/mcL Sodium 137 (136-145) mEq/L Potassium 4.4 (3.5-5.1) mEq/L Chloride 101 (98-107) mEq/L Carbon Dioxide 14 L (23-29) mEq/L BUN 39 H (6-20) mg/dL Creatinine 1.27 H (0.60-1.20) mg/dL Est GFR ( Amer) 52 L (> 60) Est GFR (Non-Af Amer) 43 L (> 60) BUN/Creatinine Ratio 31 H (6-26) Glucose 211 H (70-105) mg/dL Calculated Osmolality 300 (280-300) Lactic Acid 2.2 (0.5-2.2) mmol/L Calcium 8.9 (8.6-10.3) mg/dL Total Bilirubin 0.3 (0.3-1.0) mg/dL AST 15 (13-39) Units/L ALT 6 L (7-52) Units/L Alkaline Phosphatase 78 (34-104) Units/L Troponin I < 0.03 (< 0.04) ng/mL Serum Total Protein 6.8 (6.4-8.9) g/dL Albumin 3.7 (3.5-5.7) g/dL Globulin 3.1 (2.4-3.5) g/dL Albumin/Globulin Ratio 1.2 (1.1-2.2) Urine Color (Yellow) Urine Clarity (Clear) Urine pH (5.0-8.0) pH Units Ur Specific Art (1.010-1.025) Urine Protein (Neg-Trace) mg/dL Urine Glucose (UA) (Normal) mg/dL Urine Ketones (Negative) mg/dL Urine Blood (Negative) Urine Nitrite (Negative) Urine Bilirubin (Negative) Urine Urobilinogen (Normal) mg/dL Ur Leukocyte Esterase (Negative) Urine Bacteria (None-Few) per hpf Hyaline Casts (None-Few) per lpf Urine Mucus (Few) Ur Culture Indicated? (NO) Salicylates (15.0-30.0) mg/dL Urine Opiates Screen (Uezmel=414) ng/mL Ur Buprenorphine Scrn (Cutoff=5) ng/mL Ur Oxycodone Screen (Cutoff= 100) ng/mL Acetaminophen (10-20) mcg/mL Ur Barbiturates Screen (Xczkts=350) ng/mL Valproic Acid (50-100) mcg/mL Ur Phencyclidine Scrn (Cutoff=25) ng/mL Ur Amphetamines Screen (Grztue=7094) ng/mL U Benzodiazepines Scrn (Xzjqig=662) ng/mL Urine Cocaine Screen (Cutoff= 300) ng/mL U Marijuana (THC) Screen (Cutoff = 50) ng/mL Ur Drug Screen Interp Ethyl Alcohol (Less than 10) mg/dL 05/29/19 05/29/19 05/29/19 Range/Units 17:47 17:47 17:51 WBC (4.3-11.1) K/mcL RBC (3.82-4.97) M/mcL Hgb (11.5-15.4) g/dL Hct (35.3-44.9) % MCV (83.0-100.0) fL MCH (28.0-33.3) pg MCHC (31.6-35.5) g/dL RDW (11.5-14.5) % Plt Count (140-400) K/mcL MPV (9.4-12.4) fL Immature Gran % (0-4) % Seg Neutrophils % % Lymphocytes % % Monocytes % % Eosinophils % % Basophils % % Neutrophils # (1.6-8.9) K/mcL Lymphocytes # (0.6-4.6) K/mcL Monocytes # (0.0-1.3) K/mcL Eosinophils # (0.0-0.6) K/mcL Basophils # (0.0-0.2) K/mcL Sodium (136-145) mEq/L Potassium (3.5-5.1) mEq/L Chloride (98-107) mEq/L Carbon Dioxide (23-29) mEq/L BUN (6-20) mg/dL Creatinine (0.60-1.20) mg/dL Est GFR ( Amer) (> 60) Est GFR (Non-Af Amer) (> 60) BUN/Creatinine Ratio (6-26) Glucose (70-105) mg/dL Calculated Osmolality (280-300) Lactic Acid (0.5-2.2) mmol/L Calcium (8.6-10.3) mg/dL Total Bilirubin (0.3-1.0) mg/dL AST (13-39) Units/L ALT (7-52) Units/L Alkaline Phosphatase (34-104) Units/L Troponin I (< 0.04) ng/mL Serum Total Protein (6.4-8.9) g/dL Albumin (3.5-5.7) g/dL Globulin (2.4-3.5) g/dL Albumin/Globulin Ratio (1.1-2.2) Urine Color Yellow (Yellow) Urine Clarity Clear (Clear) Urine pH 6.0 (5.0-8.0) pH Units Ur Specific Art 1.025 (1.010-1.025) Urine Protein 30 H (Neg-Trace) mg/dL Urine Glucose (UA) Normal (Normal) mg/dL Urine Ketones 40 H (Negative) mg/dL Urine Blood Negative (Negative) Urine Nitrite Negative (Negative) Urine Bilirubin Moderate H (Negative) Urine Urobilinogen Normal (Normal) mg/dL Ur Leukocyte Esterase Negative (Negative) Urine Bacteria Few (None-Few) per hpf Hyaline Casts Few (None-Few) per lpf Urine Mucus Moderate H (Few) Ur Culture Indicated? YES A (NO) Salicylates < 2.5 L (15.0-30.0) mg/dL Urine Opiates Screen (Otehfm=260) ng/mL Ur Buprenorphine Scrn (Cutoff=5) ng/mL Ur Oxycodone Screen (Cutoff= 100) ng/mL Acetaminophen < 10 L (10-20) mcg/mL Ur Barbiturates Screen (Ajurzc=317) ng/mL Valproic Acid 67 (50-100) mcg/mL Ur Phencyclidine Scrn (Cutoff=25) ng/mL Ur Amphetamines Screen (Yuiwzv=8409) ng/mL U Benzodiazepines Scrn (Ctlzaw=642) ng/mL Urine Cocaine Screen (Cutoff= 300) ng/mL U Marijuana (THC) Screen (Cutoff = 50) ng/mL Ur Drug Screen Interp Ethyl Alcohol < 10 (Less than 10) mg/dL 05/29/19 Range/Units 17:51 WBC (4.3-11.1) K/mcL RBC (3.82-4.97) M/mcL Hgb (11.5-15.4) g/dL Hct (35.3-44.9) % MCV (83.0-100.0) fL MCH (28.0-33.3) pg MCHC (31.6-35.5) g/dL RDW (11.5-14.5) % Plt Count (140-400) K/mcL MPV (9.4-12.4) fL Immature Gran % (0-4) % Seg Neutrophils % % Lymphocytes % % Monocytes % % Eosinophils % % Basophils % % Neutrophils # (1.6-8.9) K/mcL Lymphocytes # (0.6-4.6) K/mcL Monocytes # (0.0-1.3) K/mcL Eosinophils # (0.0-0.6) K/mcL Basophils # (0.0-0.2) K/mcL Sodium (136-145) mEq/L Potassium (3.5-5.1) mEq/L Chloride (98-107) mEq/L Carbon Dioxide (23-29) mEq/L BUN (6-20) mg/dL Creatinine (0.60-1.20) mg/dL Est GFR ( Amer) (> 60) Est GFR (Non-Af Amer) (> 60) BUN/Creatinine Ratio (6-26) Glucose (70-105) mg/dL Calculated Osmolality (280-300) Lactic Acid (0.5-2.2) mmol/L Calcium (8.6-10.3) mg/dL Total Bilirubin (0.3-1.0) mg/dL AST (13-39) Units/L ALT (7-52) Units/L Alkaline Phosphatase (34-104) Units/L Troponin I (< 0.04) ng/mL Serum Total Protein (6.4-8.9) g/dL Albumin (3.5-5.7) g/dL Globulin (2.4-3.5) g/dL Albumin/Globulin Ratio (1.1-2.2) Urine Color (Yellow) Urine Clarity (Clear) Urine pH (5.0-8.0) pH Units Ur Specific Art (1.010-1.025) Urine Protein (Neg-Trace) mg/dL Urine Glucose (UA) (Normal) mg/dL Urine Ketones (Negative) mg/dL Urine Blood (Negative) Urine Nitrite (Negative) Urine Bilirubin (Negative) Urine Urobilinogen (Normal) mg/dL Ur Leukocyte Esterase (Negative) Urine Bacteria (None-Few) per hpf Hyaline Casts (None-Few) per lpf Urine Mucus (Few) Ur Culture Indicated? (NO) Salicylates (15.0-30.0) mg/dL Urine Opiates Screen Positive H (Qfaykl=520) ng/mL Ur Buprenorphine Scrn Negative (Cutoff=5) ng/mL Ur Oxycodone Screen Negative (Cutoff= 100) ng/mL Acetaminophen (10-20) mcg/mL Ur Barbiturates Screen Negative (Adoqlt=824) ng/mL Valproic Acid (50-100) mcg/mL Ur Phencyclidine Scrn Negative (Cutoff=25) ng/mL Ur Amphetamines Screen Negative (Vktelz=4523) ng/mL U Benzodiazepines Scrn Positive H (Favnna=990) ng/mL Urine Cocaine Screen Negative (Cutoff= 300) ng/mL U Marijuana (THC) Screen Negative (Cutoff = 50) ng/mL Ur Drug Screen Interp See Below Ethyl Alcohol (Less than 10) mg/dL - Radiology Data Radiology results reviewed: Yes I reviewed the patient's radiology results. Single view chest x-ray is performed. This does not demonstrate evidence for infiltrate, effusion, pneumothorax, foreign body or heart failure. The cardiac silhouette is normal. I do not see abnormality to the osseous structures of the chest. This is on my interpretation. CT head is performed. This is reviewed on bone and soft tissue windows. There is no evidence for acute intracranial bleed, shift, mass or edema. Mastoids and sinuses appear normal. There is no fracture evident. This is on my interpretation. CT is performed of the abdomen and pelvis without IV or oral contrast. This confirms the basal lungs be free of infiltrate, effusion or mass. The liver, spleen and pancreas appear normal. Kidneys are without stone or obstruction. The bowel is basically empty with exception of the transverse colon. There is no acute inflammation, obstruction or perforation present. I do not see evidence for free fluid or free air. Pelvic structures appear normal exception of one likely calcified fibroid. Abdominal wall appears intact. Bony structures are unremarkable. This is on my interpretation. Impressions Chest X-Ray 05/29/19 17:27 IMPRESSION: No acute process. D/ / John Moraes MD / John Moraes MD Interpreting Provider: John Moraes MD Head CT 05/29/19 17:30 IMPRESSION: No acute intracranial abnormality. D/ / Billy Alvarez MD / Billy Alvarez MD Interpreting Provider: Billy Alvarez MD Abdomen/Pelvis CT 05/29/19 17:48 IMPRESSION: Mild superior endplate compression fracture of L1 of indeterminate age but new since 2010. Correlation is recommended. Increased density within the left paramidline anterior abdominal wall subcutaneous fat abutting the skin. Correlation for cellulitis is recommended. D/ / Gisella Trejo Cha, MD / Gisella Trejo Cha, MD Interpreting Provider: Gisella Trejo Cha, MD - EKG Data EKG #1 EKG attestation: Yes I reviewed and interpreted this EKG. EKG shows normal: sinus rhythm, axis, intervals, QRS complexes, ST-T waves Rate: tachycardia (111) Interpretation: no acute changes, other (Sinus tachycardia)
[2019-05-29] MEDS ORDERED: Piperacillin/Tazobactam 3.375 GM in 0.9 % Sodium Chloride Mini Bag 100 ML IVPB ONE (17:48)
[2019-05-29 17:53] LABS: Basophils % 0.5 %; Eosinophils # 0.1 K/mcL (0.0-0.6); Hematocrit 38.2 % (35.3-44.9); Hemoglobin 12.5 g/dL (11.5-15.4); Lymphocytes # 2.1 K/mcL (0.6-4.6); Lymphocytes % 24.9 %; Mean Corpuscular HGB Conc 32.7 g/dL (31.6-35.5); Mean Corpuscular Hemoglobin 31.8 pg (28.0-33.3); Mean Corpuscular Volume 97.2 fL (83.0-100.0); Mean Platelet Volume 10.2 fL (9.4-12.4); Monocytes # 0.7 K/mcL (0.0-1.3); Monocytes % 8.2 %; Neutrophils # 5.4 K/mcL (1.6-8.9); Platelet Count 161 K/mcL (140-400); Red Blood Count 3.93 M/mcL (3.82-4.97); Red Cell Distribution Width 14.4 % (11.5-14.5); Segmented Neutrophils % 64.4 %; White Blood Count 8.3 K/mcL (4.3-11.1)
[2019-05-29 17:56] LABS: Bilirubin,Urine Moderate (Negative); Blood,Urine Negative (Negative); Clarity,Urine Clear (Clear); Color,Urine Yellow (Yellow); Glucose,Urine (UA) Normal (Normal); Ketones,Urine 40 mg/dL (Negative); Leukocyte Esterase,Urine Negative (Negative); Nitrite,Urine Negative (Negative); Protein,Urine 30 mg/dL (Neg-Trace); Specific Gravity,Urine 1.025 (1.010-1.025); Urobilinogen,Urine Normal (Normal)
[2019-05-29 18:07] LABS: Bacteria,Urine Few per hpf (None-Few); Hyaline Casts,Urine Few per lpf (None-Few); Mucus,Urine Moderate (Few)
[2019-05-29 18:12] LABS: Troponin I < 0.03 ng/mL (< 0.04)
[2019-05-29 18:14] LABS: Acetaminophen < 10 mcg/mL (10-20); Alanine Aminotransferase 6 Units/L (7-52); Albumin 3.7 g/dL (3.5-5.7); Albumin/Globulin Ratio 1.2 (1.1-2.2); Alkaline Phosphatase 78 Units/L (34-104); Aspartate Amino Transferase 15 Units/L (13-39); BUN/Creatinine Ratio 31 (6-26); Bilirubin,Total 0.3 mg/dL (0.3-1.0); Blood Urea Nitrogen 39 mg/dL (6-20); Calcium 8.9 mg/dL (8.6-10.3); Carbon Dioxide 14 mEq/L (23-29); Chloride 101 mEq/L (98-107); Ethanol < 10 mg/dL (Less than 10); Globulin 3.1 g/dL (2.4-3.5); Glucose 211 mg/dL (70-105); Osmolality,Calculated 300 (280-300); Potassium 4.4 mEq/L (3.5-5.1); Salicylate < 2.5 mg/dL (15.0-30.0); Sodium 137 mEq/L (136-145); Total Protein 6.8 g/dL (6.4-8.9); eGFR For African Americans 52 (> 60); eGFR For Non-African Americans 43 (> 60)
[2019-05-29 18:15] LABS: Amphetamine Screen,Urine Negative ng/mL (Cutoff=1000); Barbiturate Screen,Urine Negative ng/mL (Cutoff=200); Benzodiazepines Screen,Urine Positive ng/mL (Cutoff=200); Cannabinoid Screen,Urine Negative ng/mL (Cutoff = 50); Cocaine Screen,Urine Negative ng/mL (Cutoff= 300); Opiate Screen,Urine Positive ng/mL (Cutoff=300); Phencyclidine Screen,Urine Negative ng/mL (Cutoff=25)
[2019-05-29] MEDS ORDERED: Mag Hydrox/Al Hydrox/Simeth 30 ML UDC PO PRN (18:56)
[2019-05-29] MEDS ORDERED: Dextrose Gel 15 GM/37.5 ML TUBE PO PRN ×2 (18:56)
[2019-05-29] MEDS ORDERED: Ondansetron ODT 4 MG TAB.RAPDIS SL PRN (18:56)
[2019-05-29] MEDS ORDERED: Naloxone 0.4 MG/ML INJ IVP PRN (18:56)
[2019-05-29] MEDS ORDERED: D5% in Water 1,000 ML IVC PRN (18:56)
[2019-05-29] MEDS ORDERED: *HR* Dextrose 50 % in Water (Syg) 50 ML SYRINGE IVP PRN (18:56)
[2019-05-29] MEDS ORDERED: MOM Conc 10 ML UD.LIQ PO PRN (18:56)
[2019-05-29] MEDS ORDERED: ALPRAZolam 0.5 MG TABLET PO PRN (18:59)
[2019-05-29] MEDS: 0.9 % Sodium Chloride 1,000 ML IVC SCH (19:20)
[2019-05-29] MEDS ORDERED: Insulin DETEMIR 100 UNIT/ML per UNIT SQ ONE (21:45)
[2019-05-29] MEDS: tiZANidine 4 MG TABLET PO SCH (21:47)
[2019-05-29] MEDS: Gabapentin 300 MG CAPSULE PO SCH (21:51)
[2019-05-29] MEDS: Topiramate 100 MG TABLET PO SCH (21:51)
[2019-05-29] MEDS: Divalproex (12 HR) 250 MG TABLET PO SCH (21:51)
[2019-05-30] MEDS: Piperacillin/Tazobactam 3.375 GM in 0.9 % Sodium Chloride Mini Bag 100 ML IVPB SCH ×3 (02:10→17:51)
[2019-05-30] MEDS: 0.9 % Sodium Chloride 1,000 ML IVC SCH ×2 (06:20→10:24)
[2019-05-30 06:42] LABS: BUN/Creatinine Ratio 35 (6-26); Blood Urea Nitrogen 29 mg/dL (6-20); Carbon Dioxide 21 mEq/L (23-29); Chloride 109 mEq/L (98-107); Glucose 117 mg/dL (70-105); Osmolality,Calculated 295 (280-300); Potassium 4.1 mEq/L (3.5-5.1); Sodium 139 mEq/L (136-145); eGFR For African Americans > 60 (> 60); eGFR For Non-African Americans > 60 (> 60)
[2019-05-30 08:25] LABS: Calcium 7.8 mg/dL (8.6-10.3)
[2019-05-30] MEDS ORDERED: FLUoxetine 20 MG CAPSULE PO SCH (09:00)
[2019-05-30] MEDS ORDERED: Diclofenac Sodium (24 HR) 100 MG TABLET PO SCH (09:00)
[2019-05-30] MEDS: Insulin LISPRO 300 UNITS/3 ML VIAL SQ SCH ×3 (09:44→17:51)
[2019-05-30] MEDS: *HR* HYDROcodone/Acet 10/325 mg TABLET PO PRN ×3 (09:50→17:39)
[2019-05-30] MEDS: Divalproex (12 HR) 250 MG TABLET PO SCH ×2 (09:51→20:57)
[2019-05-30] MEDS: Topiramate 100 MG TABLET PO SCH ×2 (09:51→20:58)
[2019-05-30] MEDS: Gabapentin 300 MG CAPSULE PO SCH ×3 (09:51→20:58)
[2019-05-30] MEDS: Aspirin Enteric Coated 81 MG Tablet PO SCH (09:51)
--- NOTE | 2019-05-30 09:54 | Internal Med History&Physical ---
Date of Encounter: 05/30/19 Time of Encounter: 09:20 Assessment and Plan (1) Acute renal insufficiency Current visit: Yes Status: Acute IV fluids have been started. Renal indices will be monitored. (2) Hypertension Current visit: No Status: Chronic Borderline hypotensive. Metoprolol will be held and blood pressure monitored. Qualifiers: Hypertension type: essential hypertension Qualified Code(s): I10 - Essential (primary) hypertension (3) DM type 2 (diabetes mellitus, type 2) Current visit: No Status: Chronic Hemoglobin A1c was 7.2% on 02/24/2019. Recheck in a.m. Continue Lantus/Levemir, Glucophage, and Accu-Cheks with SSI. Qualifiers: Diabetes mellitus chcf insulin use: with chcf use Diabetes mellitus complication status: with neurologic complications Diabetes mellitus complication detail: with polyneuropathy Qualified Code(s): E11.42 - Type 2 diabetes mellitus with diabetic polyneuropathy; Z79.4 - long-term (current) use of insulin (4) Seizure disorder Current visit: No Status: Acute Continue Neurontin, Depakote, and Topamax. (5) Chronic low back pain Current visit: No Status: Chronic Continue [place]. Qualifiers: Back pain laterality: unspecified Sciatica presence: unspecified whether sciatica present Qualified Code(s): M54.5 - Low back pain; G89.29 - Other chronic pain (6) Weakness Current visit: Yes Status: Acute PT and OT evaluations will be ordered. (7) Anxiety and depression Current visit: Yes Status: Chronic Continue Xanax and Prozac. (8) Weight loss Current visit: Yes Status: Acute CT of abdomen and chest x-ray unremarkable. TSH will be ordered and further wor kup as needed. Internal Medicine - H&P: HPI Chief complaint: Weakness Admitted From: Emergency Dept Plans for Post Hospital Care: Home History of present illness: Ms. Rios is a 59 year old female who was brought by EMS to emergency room after a neighbor found patient weak. Patient does not recall coming to emergency room. She reports she has gotten progressively weaker since [facility] discharge 04/25/2019. She states her appetite is poor. She denies vomiting diarrhea or acute pain. She was evaluated in emergency room and was found to have acute renal insufficiency probably secondary to dehydration. She was admitted to [facility] floor for ongoing care needs. She is a rambling historian. She reports home health services were ordered at time of her March [facility] discharge but she states she has not consistently participated with home therapy. She also reports the home health agency has not consistently sent personnel to her house. She initially stated she wished to be discharged to a longterm for a few weeks to gain her strength but later stated she really wanted increased home health services at her home and does not want to go to a SNF. Past Med Surg Social Fam HX - Past Medical History Medical history: arthritis, diabetes, hyperlipidemia, hypertension, migraine, seizures, other Additional medical history: epilepsy, chronic pain Psychiatric history: anxiety, depression - Past Surgical History Surgical History: , orthopedic, other, other Additional surgical history: chronic pain,uterine fibroids. baCK - Social History Smoking Status: Current every day smoker Smokeless Tobacco Status: No Alcohol use: none Drug use: none - Family History Father Living Status: Hx Family Endocrine Disorder: Yes Internal Medicine - H&P: Meds Aspirin [Lo-Dose Aspirin EC] 81 mg PO DAILY 04/25/16 [History] Divalproex (12 HR) [Depakote (12 HR)] 1,000 mg PO BID 04/25/16 [History] Esomeprazole Magnesium [Nexium] 40 mg PO DAILY 04/25/16 [History] Gabapentin [Neurontin] 300 mg PO TID 04/25/16 [History] HYDROcodone/Acet 10/325 mg [[place] 10-325 mg] 1 tab PO QID PRN 04/25/16 [History] Insulin ASPART [NovoLOG] 10 - 14 unit SQ QID 04/25/16 [History] Insulin Glargine [Lantus] 18 unit SQ HS 04/25/16 [History] Lisinopril [Zestril] 10 mg PO DAILY 04/25/16 [History] Metformin HCl [Glucophage] 1,000 mg PO BID 04/25/16 [History] Metoprolol XL (24 HR) Succ [Toprol Xl] 50 mg PO DAILY 04/25/16 [History] Promethazine [Phenergan] 25 mg PO Q6HR 04/25/16 [History] Topiramate [Topamax] 100 mg PO BID 04/25/16 [History] ALPRAZolam [Xanax 0.5 MG Tablet] 0.5 tab PO BID PRN 05/29/19 [History] Butalb/Acetaminophen/Caffeine [Fioricet 50-300-40 mg Capsule] 1 each PO BID 05/29/19 [History] Cyclobenzaprine [Flexeril] 10 mg PO TID 05/29/19 [History] Etodolac [Etodolac ER] 500 mg PO QAM 05/29/19 [History] FLUoxetine HCl [Fluoxetine HCl] 40 mg PO DAILY 05/29/19 [History] Oxybutynin [Ditropan] 5 mg PO BID 05/29/19 [History] Tizanidine HCl [Zanaflex] 2 mg PO HS 05/29/19 [History] Allergy/AdvReac Type Severity Reaction Status Date / Time oxycodone [Oxycodone] Allergy Vomiting Verified 04/22/19 13:52 amitriptyline AdvReac See Verified 04/22/19 13:52 Comments morphine AdvReac See Verified 04/22/19 13:51 Comments All Systems PM: A 10-system review of systems was performed and is negative for pertinent findings except as documented above in the HPI. Review of systems: Review of systems from her March 2019 [facility] hospitalization were reviewed and revi sed as below. Gen.: Her weight has decreased from 80.739 kg on 04/22/2019 to 73.028 kg at present Cardiovascular: She has history of hypertension but denies HI heart failure angina DVT or pulmonary embolus Respiratory: She has smoked since age 14 up to one and a half packs per day. She has not been diagnosed with chronic lung disease and does not use home oxygen. 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 She reports her last seizure was approximately one year ago. She has occasional migraine headaches. She denies large distribution strokes. She has been diagnosed with diabetic peripheral neuropathy. Endocrine: She was diagnosed with DM 2 approximately age 30. She denies thyroid disease or hyperlipidemia Hematology/oncology: She denies blood disorders cancers or anemia Psychiatric: She has anxiety and depression but denies other mental health diagnoses. Hospitalization March 2019 [facility] was due to multiple falls possibly from increased Prozac dose. She has remained on the lower dose 20 mg daily since discharge. [place] skeletal: She had low back surgery approximately 2000 and has chronic low back pain. She has DJD but denies gout or other bone joint or muscle disorders. - Constitutional Vitals: Temp Pulse Resp BP Pulse Ox 97.6 F 86 16 73/55 96 05/30/19 08:49 05/30/19 08:49 05/30/19 08:49 05/30/19 08:49 05/30/19 08:49 Exam: Gen.: She is a well-developed well-nourished female lying in bed who appears in no acute distress. HEENT: Head is atraumatic and normocephalic. Eyes: EOMI. There is no scleral icterus. Mouth: Mucosa is moist. Neck: Supple and nontender. There is no thyromegaly or adenopathy noted. Heart: Regular without murmurs gallops or ectopics Lungs: No wheezes or crackles are heard. Abdomen: Soft and nontender. No masses or guarding are noted. Extremities: There is no cyanosis edema or clubbing noted. Dorsalis pedis and posttibial pulses 1-2 over 2 bilaterally. Neurologic: Mental status: She is talkative and seems to be a reliable historian. Cranial nerves: Smile is symmetric. Forehead wrinkles bilaterally. Tongue protrudes midline. EOMI. Motor: There is no pronator drift. Cerebellar: Finger to nose is intact bilaterally. Skin: Warm and dry Internal Med - H&P Results - Labs CBC & Chem 7: 05/29/19 17:47 05/30/19 05:09 Labs: Short CBC 05/29/19 Range/Units 17:47 WBC 8.3 (4.3-11.1) K/mcL Hgb 12.5 (11.5-15.4) g/dL Hct 38.2 (35.3-44.9) % Plt Count 161 (140-400) K/mcL Neutrophils # 5.4 (1.6-8.9) K/mcL BMP 05/29/19 05/30/19 17:47 05:09 Sodium 137 139 Potassium 4.4 4.1 Chloride 101 109 H Carbon Dioxide 14 L 21 L BUN 39 H 29 H Creatinine 1.27 H 0.84 Glucose 211 H 117 H Calcium 8.9 7.8 L Cardiac Enzymes 05/29/19 Range/Units 17:47 Troponin I < 0.03 (< 0.04) ng/mL Liver Function 05/29/19 Range/Units 17:47 Total Bilirubin 0.3 (0.3-1.0) mg/dL AST 15 (13-39) Units/L ALT 6 L (7-52) Units/L Alkaline Phosphatase 78 (34-104) Units/L Albumin 3.7 (3.5-5.7) g/dL Urine 05/29/19 Range/Units 17:51 Urine Color Yellow (Yellow) Urine Clarity Clear (Clear) Urine pH 6.0 (5.0-8.0) pH Units Ur Specific [place] 1.025 (1.010-1.025) Urine Protein 30 H (Neg-Trace) mg/dL Urine Glucose (UA) Normal (Normal) mg/dL - Impressions ITS Impressions Chest X-Ray 05/29/19 17:27 IMPRESSION: No acute process. D/ / John Moraes MD / John Moraes MD Interpreting Provider: John Moraes MD Head CT 05/29/19 17:30 IMPRESSION: No acute intracranial abnormality. D/ / Billy Alvarez MD / Billy Alvarez MD Interpreting Provider: Billy Alvarez MD Abdomen/Pelvis CT 05/29/19 17:48 IMPRESSION: Mild superior endplate compression fracture of L1 of indeterminate age but new since 2010. Correlation is recommended. Increased density within the left paramidline anterior abdominal wall subcutaneous fat abutting the skin. Correlation for cellulitis is recommended. D/ / Gisella Trejo Cha, MD / Gisella Trejo Cha, MD Interpreting Provider: Gisella Trejo Cha, MD
[2019-05-30] MEDS: tiZANidine 4 MG TABLET PO SCH (20:36)
[2019-05-30] MEDS: Insulin DETEMIR 100 UNIT/ML X5UNITS SQ SCH (20:58)
[2019-05-31] MEDS: Piperacillin/Tazobactam 3.375 GM in 0.9 % Sodium Chloride Mini Bag 100 ML IVPB SCH ×2 (01:36→10:42)
[2019-05-31 05:56] LABS: Basophils % 0.3 %; Eosinophils # 0.1 K/mcL (0.0-0.6); Eosinophils % 1.8 %; Hematocrit 34.7 % (35.3-44.9); Hemoglobin 11.3 g/dL (11.5-15.4); Immature Granulocytes % 0.7 % (0-4); Lymphocytes # 2.1 K/mcL (0.6-4.6); Lymphocytes % 29.6 %; Mean Corpuscular HGB Conc 32.6 g/dL (31.6-35.5); Mean Corpuscular Hemoglobin 31.7 pg (28.0-33.3); Mean Corpuscular Volume 97.2 fL (83.0-100.0); Mean Platelet Volume 10.4 fL (9.4-12.4); Monocytes # 0.5 K/mcL (0.0-1.3); Monocytes % 6.7 %; Neutrophils # 4.3 K/mcL (1.6-8.9); Platelet Count 137 K/mcL (140-400); Red Blood Count 3.57 M/mcL (3.82-4.97); Red Cell Distribution Width 14.4 % (11.5-14.5); Segmented Neutrophils % 60.9 %; White Blood Count 7.1 K/mcL (4.3-11.1)
[2019-05-31 06:21] LABS: BUN/Creatinine Ratio 23 (6-26); Blood Urea Nitrogen 16 mg/dL (6-20); Calcium 8.1 mg/dL (8.6-10.3); Carbon Dioxide 21 mEq/L (23-29); Chloride 109 mEq/L (98-107); Glucose 212 mg/dL (70-105); Osmolality,Calculated 295 (280-300); Sodium 139 mEq/L (136-145); eGFR For African Americans > 60 (> 60); eGFR For Non-African Americans > 60 (> 60)
[2019-05-31 06:31] LABS: Thyroid Stimulating Hormone 2.423 mcIU/mL (0.340-5.600)
[2019-05-31] MEDS: Divalproex (12 HR) 250 MG TABLET PO SCH ×2 (08:39→20:34)
[2019-05-31] MEDS: FLUoxetine 20 MG CAPSULE PO SCH (08:39)
[2019-05-31] MEDS: Topiramate 100 MG TABLET PO SCH ×2 (08:39→20:34)
[2019-05-31] MEDS: Gabapentin 300 MG CAPSULE PO SCH ×3 (08:39→20:34)
[2019-05-31] MEDS: Aspirin Enteric Coated 81 MG Tablet PO SCH (08:39)
[2019-05-31] MEDS: Insulin LISPRO 300 UNITS/3 ML VIAL SQ SCH ×3 (08:40→17:45)
[2019-05-31] MEDS: *HR* HYDROcodone/Acet 10/325 mg TABLET PO PRN ×2 (08:42→14:35)
--- NOTE | 2019-05-31 10:14 | Internal Med Progress Note ---
Date of Encounter: 05/31/19 Time of Encounter: 10:05 - Assessment and plan (1) Acute renal insufficiency Current Visit: Yes Status: Acute Assessment and plan: May 31. Resolved. BUN and creatinine are 16 and 0.70 respectively with estimated GFR 60. Discontinue IV fluids. (2) Hypertension Current Visit: No Status: Chronic Assessment and plan: May 31. Blood pressure stable. Remain off metoprolol and monitor. Qualifiers: Hypertension type: essential hypertension Qualified Code(s): I10 - Essential (primary) hypertension (3) DM type 2 (diabetes mellitus, type 2) Current Visit: No Status: Chronic Assessment and plan: May 31. Hemoglobin A1c pending. Accu-Cheks acceptable. Continue Lantus/Levemir, Glucophage, and Accu-Cheks with SSI. Qualifiers: Diabetes mellitus longterm insulin use: with intermodal dispatcher use Diabetes melli tus complication status: with neurologic complications Diabetes mellitus complication detail: with polyneuropathy Qualified Code(s): E11.42 - Type 2 diabetes mellitus with diabetic polyneuropathy; Z79.4 - long term care administrator (current) use of insulin (4) Seizure disorder Current Visit: No Status: Acute Assessment and plan: May 31. Continue Neurontin, Depakote, and Topamax. (5) Chronic low back pain Current Visit: No Status: Chronic Assessment and plan: May 31. Continue [place]. Qualifiers: Back pain laterality: unspecified Sciatica presence: unspecified whether sciatica present Qualified Code(s): M54.5 - Low back pain; G89.29 - Other chronic pain (6) Weakness Current Visit: Yes Status: Acute Assessment and plan: May 31. Continue PT and OT intervention. (7) Anxiety and depression Current Visit: Yes Status: Chronic Assessment and plan: May 31. Continue prn Xanax and scheduled Prozac (8) Weight loss Current Visit: Yes Status: Acute Assessment and plan: May 31. CT of abdomen and chest x-ray unremarkable. TSH normal. Weight has increased with hydration. Continue to monitor. - Subjective Interval history: May 31. She has no new complaints and feels better. - Constitutional Vitals: Temp Pulse Resp BP Pulse Ox 98.3 F 91 24 107/64 94 05/31/19 07:03 05/31/19 07:03 05/31/19 07:03 05/31/19 07:03 05/31/19 07:03 Exam: She is resting comfortably in bed and appears in no acute distress. She is more focused in conversation today. Her affect is bright and cheerful. I reviewed her medications and lab results. She confirm she is willing to go to a SNF for a few weeks for therapy but wishes to be discharged by June 29. Internal Medicine: Result - Labs CBC & Chem 7: 05/31/19 05:20 05/31/19 05:20 Labs: Short CBC 05/31/19 Range/Units 05:20 WBC 7.1 (4.3-11.1) K/mcL Hgb 11.3 L (11.5-15.4) g/dL Hct 34.7 L (35.3-44.9) % Plt Count 137 L (140-400) K/mcL Neutrophils # 4.3 (1.6-8.9) K/mcL BMP 05/31/19 05:20 Sodium 139 Potassium 4.0 Chloride 109 H Carbon Dioxide 21 L BUN 16 Creatinine 0.70 Glucose 212 H Calcium 8.1 L Consult Discharge Plan - Plan Referrals: Odalys Moura, [facility] [Primary Care Provider] - 1 week
[2019-05-31 11:12] LABS: Estimated Average Glucose 177 mg/dl
[2019-05-31] MEDS: tiZANidine 4 MG TABLET PO SCH (19:49)
[2019-05-31] MEDS: Insulin DETEMIR 100 UNIT/ML X5UNITS SQ SCH (20:34)
[2019-06-01 07:20] VITALS: BP 103/62
[2019-06-01] MEDS: Insulin LISPRO 300 UNITS/3 ML VIAL SQ SCH (08:16)
[2019-06-01] MEDS: Divalproex (12 HR) 250 MG TABLET PO SCH (08:18)
[2019-06-01] MEDS: Aspirin Enteric Coated 81 MG Tablet PO SCH (08:18)
[2019-06-01] MEDS: FLUoxetine 20 MG CAPSULE PO SCH (08:19)
[2019-06-01] MEDS: Topiramate 100 MG TABLET PO SCH (08:19)
[2019-06-01] MEDS: Gabapentin 300 MG CAPSULE PO SCH (08:19)
[2019-06-01] MEDS: *HR* HYDROcodone/Acet 10/325 mg TABLET PO PRN (08:20)
--- NOTE | 2019-06-01 10:25 | Discharge Summary ---
Orders not resulted at time of discharge: Pending orders 05/29/19 18:14 Culture,Blood [] Stat Date of Encounter: 06/01/19 Time of Encounter: 10:15 - Discharge Diagnosis (1) Acute renal insufficiency Priority: Primary Status: Acute (2) Hypertension Priority: Secondary Status: Chronic Qualifiers: Hypertension type: essential hypertension Qualified Code(s): I10 - Essential (primary) hypertension (3) DM type 2 (diabetes mellitus, type 2) Priority: Secondary Status: Chronic Qualifiers: Diabetes mellitus terminal gauger supervisor insulin use: with fpc use Diabetes mellitus complication status: with neurologic complications Diabetes mellitus complication detail: with polyneuropathy Qualified Code(s): E11.42 - Type 2 diabetes mellitus with diabetic polyneuropathy; Z79.4 - senior care (current) use of insulin (4) Seizure disorder Priority: Secondary Status: Chronic (5) Chronic low back pain Priority: Secondary Status: Chronic Qualifiers: Back pain laterality: unspecified Sciatica presence: unspecified whether sciatica present Qualified Code(s): M54.5 - Low back pain; G89.29 - Other chronic pain (6) Weakness Priority: Secondary Status: Acute (7) Anxiety and depression Priority: Secondary Status: Chronic (8) Weight loss Priority: Secondary Status: Acute Hospital course: Ms. Rios is a 59 year old female who was brought by EMS to emergency room after a neighbor found patient weak. Patient does not recall coming to emergency room. She reports she has gotten progressively weaker since [facility] discharge 04/25/2019. She states her appetite is poor. She denies vomiting diarrhea or acute pain. She was evaluated in emergency room and was found to have acute renal insufficiency probably secondary to dehydration. She was admitted to [facility] floor for ongoing care needs. Initial orders were written by the emergency room physician. I saw her on A ugust 2 and performed a history and physical. She was started on IV fluids. Lisinopril and etodolac were held. BUN and creatinine normalized to 16 and 0.70 with estimated GFR > 60 by day of discharge. She felt significantly improved and stated she was able to ambulate to the bathroom independently by day of discharge. She initially expressed a desire to go to local SNF for therapy but felt ortiz fficiently improved by June 01 to be discharged home. She will follow with her PCP Odalys Moura CNP within 1 week. Home health services will be ordered. - Time Spent with Patient Total time spent providing and/or coordinating discharge services: - Discharge Medications Prescriptions: Continued Gabapentin [Neurontin] 300 mg PO TID Divalproex (12 HR) [Depakote (12 HR)] 1,000 mg PO BID Metoprolol XL (24 HR) Succ [Toprol Xl] 50 mg PO DAILY Insulin ASPART [NovoLOG] 10 - 14 unit SQ QID Promethazine [Phenergan] 25 mg PO Q6HR HYDROcodone/Acet 10/325 mg [[place] 10-325 mg] 1 tab PO QID PRN PRN Reason: Pain Topiramate [Topamax] 100 mg PO BID Metformin HCl [Glucophage] 1,000 mg PO BID Insulin Glargine [Lantus] 18 unit SQ HS Esomeprazole Magnesium [Nexium] 40 mg PO DAILY Aspirin [Lo-Dose Aspirin EC] 81 mg PO DAILY Tizanidine HCl [Zanaflex] 2 mg PO HS Oxybutynin [Ditropan] 5 mg PO BID FLUoxetine HCl [Fluoxetine HCl] 40 mg PO DAILY Cyclobenzaprine [Flexeril] 10 mg PO TID Butalb/Acetaminophen/Caffeine [Fioricet 50-300-40 mg Capsule] 1 each PO BID ALPRAZolam [Xanax 0.5 MG Tablet] 0.5 tab PO BID PRN PRN Reason: Anxiety Discontinued Lisinopril [Zestril] 10 mg PO DAILY Etodolac [Etodolac ER] 500 mg PO QAM Home Medications: Aspirin [Lo-Dose Aspirin EC] 81 mg PO DAILY 04/25/16 [History] Divalproex (12 HR) [Depakote (12 HR)] 1,000 mg PO BID 04/25/16 [History] Esomeprazole Magnesium [Nexium] 40 mg PO DAILY 04/25/16 [History] Gabapentin [Neurontin] 300 mg PO TID 04/25/16 [History] HYDROcodone/Acet 10/325 mg [[place] 10-325 mg] 1 tab PO QID PRN 04/25/16 [History] Insulin ASPART [NovoLOG] 10 - 14 unit SQ QID 04/25/16 [History] Insulin Glargine [Lantus] 18 unit SQ HS 04/25/16 [History] Metformin HCl [Glucophage] 1,000 mg PO BID 04/25/16 [History] Metoprolol XL (24 HR) Succ [Toprol Xl] 50 mg PO DAILY 04/25/16 [History] Promethazine [Phenergan] 25 mg PO Q6HR 04/25/16 [History] Topiramate [Topamax] 100 mg PO BID 04/25/16 [History] ALPRAZolam [Xanax 0.5 MG Tablet] 0.5 tab PO BID PRN 05/29/19 [History] Butalb/Acetaminophen/Caffeine [Fioricet 50-300-40 mg Capsule] 1 each PO BID 05/29/19 [History] Cyclobenzaprine [Flexeril] 10 mg PO TID 05/29/19 [History] FLUoxetine HCl [Fluoxetine HCl] 40 mg PO DAILY 05/29/19 [History] Oxybutynin [Ditropan] 5 mg PO BID 05/29/19 [History] Tizanidine HCl [Zanaflex] 2 mg PO HS 05/29/19 [History] Allergies/Adverse Reactions: Allergy/AdvReac Type Severity Reaction Status Date / Time oxycodone [Oxycodone] Allergy Vomiting Verified 04/22/19 13:52 amitriptyline AdvReac See Verified 04/22/19 13:52 Comments morphine AdvReac See Verified 04/22/19 13:51 Comments Date of admission: 05/29/19 19:10 Primary care physician: Odalys Moura CNP Consults: 05/29/19 19:02 Consult to Cost And Risk Analysis Manager [CONS] Routine Reason for SW Consult: Weakness, altered mental status, depression, evaluation for additional home placement or respite assisted placement 05/30/19 09:53 Consult to Occupational Therapy [CONS] Routine Comment: Evaluate, develop and implement POC Reason for Consult: Weakness Does patient have active BEDREST order?: No Is patient medically & hemodynamically stable?: Yes Patient assessed for mobility or mobilized this visit?: Yes Consult to Physical Therapy [CONS] Routine Comment: Evaluate, develop and implement POC Reason for Consult: Weakness Does patient have active BEDREST order?: No Is patient medically & hemodynamically stable?: Yes Patient assessed for mobility or mobilized this visit?: Yes - Constitutional Vitals: Temp Pulse Resp BP Pulse Ox 98.4 F 96 16 103/62 95 06/01/19 07:14 06/01/19 07:14 06/01/19 07:14 06/01/19 07:14 06/01/19 07:14 - Patient Status Disposition: Home Health Service Condition: Fair - Discharge Instructions Follow Up With: Odalys Moura, BELT MEASURER [Primary Care Provider] - 1 week - Diet and Activity Activity: as per physical therapy Diet: diabetic diet
--- NOTE | 2019-06-01 10:31 | Physician Discharge Referral ---
Home Health/Hosp Referral Info Transfer to: Home Health Attending Provider: Joseph Provider in Charge Post Discharge: PCP (Odalys Moura CNP) - Diagnosis (1) Acute renal insufficiency Priority: Primary Status: Acute (2) Hypertension Priority: Secondary Status: Chronic (3) DM type 2 (diabetes mellitus, type 2) Priority: Secondary Status: Chronic (4) Seizure disorder Priority: Secondary Status: Chronic (5) Chronic low back pain Priority: Secondary Status: Chronic (6) Weakness Priority: Secondary Status: Acute (7) Anxiety and depression Priority: Secondary Status: Chronic (8) Weight loss Priority: Secondary Status: Acute - Respiratory Orders Smoking Cessation: Smoking cessation has been advised. For more information, call the [place] Tobacco Quit Line at 7-335-HZEV-NOW. - Diet/Nutrition Diet/Nutrition Orders: No Concentrated Sweets - Activity Activity Orders: Walker - Services Needed Following services are medically necessary services: Nursing, Home Health Aide, Physical Therapy, Occupational Therapy - Transfer Medications Home Medications: Aspirin [Lo-Dose Aspirin EC] 81 mg PO DAILY 04/25/16 [History] Divalproex (12 HR) [Depakote (12 HR)] 1,000 mg PO BID 04/25/16 [History] Esomeprazole Magnesium [Nexium] 40 mg PO DAILY 04/25/16 [History] Gabapentin [Neurontin] 300 mg PO TID 04/25/16 [History] HYDROcodone/Acet 10/325 mg [[place] 10-325 mg] 1 tab PO QID PRN 04/25/16 [History] Insulin ASPART [NovoLOG] 10 - 14 unit SQ QID 04/25/16 [History] Insulin Glargine [Lantus] 18 unit SQ HS 04/25/16 [History] Metformin HCl [Glucophage] 1,000 mg PO BID 04/25/16 [History] Metoprolol XL (24 HR) Succ [Toprol Xl] 50 mg PO DAILY 04/25/16 [History] Promethazine [Phenergan] 25 mg PO Q6HR 04/25/16 [History] Topiramate [Topamax] 100 mg PO BID 04/25/16 [History] ALPRAZolam [Xanax 0.5 MG Tablet] 0.5 tab PO BID PRN 05/29/19 [History] Butalb/Acetaminophen/Caffeine [Fioricet 50-300-40 mg Capsule] 1 each PO BID 05/29/19 [History] Cyclobenzaprine [Flexeril] 10 mg PO TID 05/29/19 [History] FLUoxetine HCl [Fluoxetine HCl] 40 mg PO DAILY 05/29/19 [History] Oxybutynin [Ditropan] 5 mg PO BID 05/29/19 [History] Tizanidine HCl [Zanaflex] 2 mg PO HS 05/29/19 [History] Allergies/Adverse Reactions: Allergy/AdvReac Type Severity Reaction Status Date / Time oxycodone [Oxycodone] Allergy Vomiting Verified 04/22/19 13:52 amitriptyline AdvReac See Verified 04/22/19 13:52 Comments morphine AdvReac See Verified 04/22/19 13:51 Comments Certification: Further, I certify that my clinical findings support that this patient is homebound (i.e. absences from home require considerable and taxing effort and are for medical reasons or yarsani services or infrequently or short duration when for other reasons) because: Homebound Reason: Leaving home requires considerable and taxing effort due to condition (Impaired mobility, weakness) Attestation: My signature below is to certify that this patient is under my care and that I, or nurse practitioner, or a physician's senior underwriting assistant working with me, has a f charmaine-to-face encounter with this patient.
--- NOTE | 2019-06-02 13:00 | Electrocardiograph Report ---
[place] [id number] Test Date: 2019-05-29 Pat Name: Chuyita Rios Department: EDP-11 Room: 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
== END 2019-06-01 11:26 | disposition home health service (06) ==
LOC: EMEROOPIK 17:20 → INPPIK 17:20
PROVIDERS: ADMIT Internal Medicine; ATTEND Internal Medicine

== ENCOUNTER 2019-06-13 16:39 | Inpatient (IN) ==
--- NOTE | 2019-06-13 16:45 | Emergency Department Note ---
Disposition Clinical Impression: Hypomagnesemia, Weakness, Lactic acidosis Disposition: Admitted As Inpatient Condition: Fair Referrals: Odalys Moura, DISPUTE COORDINATOR [Primary Care Provider] - Forms: ED Satisfaction Letter Time of Disposition: 18:16 General Adult HPI - General Chief complaint: ED General Medical Stated complaint: gen weakness, frequent falls Time Seen by Provider: 06/13/19 16:44 Source: patient Mode of arrival: ambulatory Limitations: no limitations Nursing Notes Reviewed: Yes Vital Signs Reviewed: Yes - History of Present Illness HPI Narrative: 59-year-old female brought in by ambulance today for weakness and frequent falls at home. She states that she has been seen here twice the last couple weeks both times she was admitted for dehydration and weakness. She states that she is just not wanted to eat since her cat a few weeks ago. She states she is also started on Prozac a few weeks ago and she says that that may have influenced her not wanting to eat. She states that she is used to getting up and having pop and a cigarette in the morning it is just not used to drinking water or eating a lot. She thinks she might be getting more now than she has in the past but she just been very depressed. Patient states that she did not follow-up with anybody after she got out of here. She denies any chest pain. She states she just feels very lightheaded at times. She denies any belly pain she denies any dysuria she denies any fevers - Related Data Home Medications Medication Instructions Recorded Confirmed Aspirin [Lo-Dose Aspirin EC] 81 mg PO DAILY 04/25/16 06/13/19 Divalproex (12 HR) [Depakote (12 1,000 mg PO BID 04/25/16 06/13/19 HR)] Esomeprazole Magnesium [Nexium] 40 mg PO DAILY 04/25/16 06/13/19 Gabapentin [Neurontin] 300 mg PO TID 04/25/16 06/13/19 HYDROcodone/Acet 10/325 mg [[place] 1 tab PO QID PRN 04/25/16 06/13/19 10-325 mg] Insulin ASPART [NovoLOG] 10 - 14 unit SQ QID 04/25/16 06/13/19 Insulin Glargine [Lantus] 18 unit SQ HS 04/25/16 06/13/19 Metformin HCl [Glucophage] 1,000 mg PO BID 04/25/16 06/13/19 Metoprolol XL (24 HR) Succ [Toprol 50 mg PO DAILY 04/25/16 06/13/19 Xl] Promethazine [Phenergan] 25 mg PO Q6HR 04/25/16 06/13/19 Topiramate [Topamax] 100 mg PO BID 04/25/16 06/13/19 ALPRAZolam [Xanax 0.5 MG Tablet] 0.5 tab PO BID PRN 05/29/19 06/13/19 Butalb/Acetaminophen/Caffeine 1 each PO BID 05/29/19 06/13/19 [Fioricet 50-300-40 mg Capsule] Cyclobenzaprine [Flexeril] 10 mg PO TID 05/29/19 06/13/19 FLUoxetine HCl [Fluoxetine HCl] 40 mg PO DAILY 05/29/19 06/13/19 Oxybutynin [Ditropan] 5 mg PO BID 05/29/19 06/13/19 Tizanidine HCl [Zanaflex] 2 mg PO HS 05/29/19 06/13/19 Allergies Allergy/AdvReac Type Severity Reaction Status Date / Time oxycodone [Oxycodone] Allergy Vomiting Verified 04/22/19 13:52 amitriptyline AdvReac See Verified 04/22/19 13:52 Comments morphine AdvReac See Verified 04/22/19 13:51 Comments Review of Systems: All other systems are negative except as noted/marked Chart generated with voice recognition software Nursing notes reviewed Old records reviewed Past Medical History - Past Medical History Attestation: Yes The following information was validated with the patient. 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: uterine fibroids - Social History Smoking Status: Current every day smoker Smokeless Tobacco Status: No Alcohol use: Reports: none Drug use: Reports: none Physical Exam General: NAD, VSS Head: normocephalic, atraumatic Eyes: EOMI, PERRLA mouth: Dry mucous membranes Neck: NO CLA, Supple Chest wall: normal rise, no crepitus, no deformity noted Lungs: moving air well, no distress Heart: RRR, Abd: soft, nontender, BS normal : deferred MSK: strength equal in all four extremities Ext: moves all four extremities, no obvious deformities Skin: cap refill normal, warm, dry neuro : CN2-12 grossly intact, A&Ox3 Psych: normal affect, not anxious Course Vital Signs Temperature 99.8 F H 06/13/19 16:44 Pulse Rate 74 06/13/19 16:44 Respiratory Rate 18 06/13/19 16:44 Blood Pressure 127/50 06/13/19 16:44 O2 Sat by Pulse Oximetry 98 06/13/19 16:44 Temperature 99.8 F H 06/13/19 16:44 Pulse Rate 74 06/13/19 18:01 Respiratory Rate 18 06/13/19 18:01 Blood Pressure 103/52 06/13/19 18:01 O2 Sat by Pulse Oximetry 98 06/13/19 18:01 Oxygen Delivery Oxygen Delivery Room Air Medical Decision Making - MDM Narrative Medical decision making narrative: 59 year old female presents today with weakness. She states that she is really not eating well at home she is been very depressed. Her magnesium is extremely low today was started with a 2 g bolus here in the department. She will need to be treated overnight in replaced in the hospital. I spoke with Dr. Ruiz about this and he is agreeable to admitting the patient. Patient's agreeable to staying. - Medical Records Medical records reviewed: Yes I reviewed the patient's medical records. - Lab Data Lab results reviewed: Yes I reviewed the patient's lab results. Result diagrams: 06/13/19 17:24 06/13/19 17:24 Lab Results 06/13/19 06/13/19 06/13/19 Range/Units 17:24 17:24 17:24 WBC 9.4 (4.3-11.1) K/mcL RBC 3.27 L (3.82-4.97) M/mcL Hgb 10.4 L (11.5-15.4) g/dL Hct 32.9 L (35.3-44.9) % MCV 100.6 H (83.0-100.0) fL MCH 31.8 (28.0-33.3) pg MCHC 31.6 (31.6-35.5) g/dL RDW 16.3 H (11.5-14.5) % Plt Count 228 (140-400) K/mcL MPV 9.0 L (9.4-12.4) fL Immature Gran % 1.7 (0-4) % Seg Neutrophils % 61.3 % Lymphocytes % 28.4 % Monocytes % 6.8 % Eosinophils % 1.3 % Basophils % 0.5 % Neutrophils # 5.7 (1.6-8.9) K/mcL Lymphocytes # 2.7 (0.6-4.6) K/mcL Monocytes # 0.6 (0.0-1.3) K/mcL Eosinophils # 0.1 (0.0-0.6) K/mcL Basophils # 0.1 (0.0-0.2) K/mcL Nucleated RBCs/100 WBC 0.9 H (0) /100 WBC Sodium 142 (136-145) mEq/L Potassium 3.5 (3.5-5.1) mEq/L Chloride 110 H (98-107) mEq/L Carbon Dioxide 17 L (23-29) mEq/L BUN 19 (6-20) mg/dL Creatinine 0.79 (0.60-1.20) mg/dL Est GFR ( Amer) > 60 (> 60) Est GFR (Non-Af Amer) > 60 (> 60) BUN/Creatinine Ratio 24 (6-26) Glucose 137 H (70-105) mg/dL Calculated Osmolality 298 (280-300) Lactic Acid 3.1 H (0.5-2.2) mmol/L Calcium 8.3 L (8.6-10.3) mg/dL Phosphorus (2.7-4.5) mg/dL Magnesium 1.1 L (1.6-2.6) mg/dL Total Bilirubin 0.3 (0.3-1.0) mg/dL AST 24 (13-39) Units/L ALT 8 (7-52) Units/L Alkaline Phosphatase 75 (34-104) Units/L Troponin I < 0.03 (< 0.04) ng/mL Serum Total Protein 6.2 L (6.4-8.9) g/dL Albumin 3.2 L (3.5-5.7) g/dL Globulin 3.0 (2.4-3.5) g/dL Albumin/Globulin Ratio 1.1 (1.1-2.2) TSH 2.299 (0.340-5.600) mcIU/mL Urine Color (Yellow) Urine Clarity (Clear) Urine pH (5.0-8.0) pH Units Ur Specific [place] (1.010-1.025) Urine Protein (Neg-Trace) mg/dL Urine Glucose (UA) (Normal) mg/dL Urine Ketones (Negative) mg/dL Urine Blood (Negative) Urine Nitrite (Negative) Urine Bilirubin (Negative) Urine Urobilinogen (Normal) mg/dL Ur Leukocyte Esterase (Negative) Urine Microscopic RBC (0-3) per hpf Urine Microscopic WBC (0-3) per hpf Ur Squamous Epith Cells (None-Few) per lpf Urine Bacteria (None-Few) per hpf Hyaline Casts (None-Few) per lpf Urine Yeast (None Seen) per hpf Ur Culture Indicated? (NO) 06/13/19 06/13/19 Range/Units 17:24 17:30 WBC (4.3-11.1) K/mcL RBC (3.82-4.97) M/mcL Hgb (11.5-15.4) g/dL Hct (35.3-44.9) % MCV (83.0-100.0) fL MCH (28.0-33.3) pg MCHC (31.6-35.5) g/dL RDW (11.5-14.5) % Plt Count (140-400) K/mcL MPV (9.4-12.4) fL Immature Gran % (0-4) % Seg Neutrophils % % Lymphocytes % % Monocytes % % Eosinophils % % Basophils % % Neutrophils # (1.6-8.9) K/mcL Lymphocytes # (0.6-4.6) K/mcL Monocytes # (0.0-1.3) K/mcL Eosinophils # (0.0-0.6) K/mcL Basophils # (0.0-0.2) K/mcL Nucleated RBCs/100 WBC (0) /100 WBC Sodium (136-145) mEq/L Potassium (3.5-5.1) mEq/L Chloride (98-107) mEq/L Carbon Dioxide (23-29) mEq/L BUN (6-20) mg/dL Creatinine (0.60-1.20) mg/dL Est GFR ( Amer) (> 60) Est GFR (Non-Af Amer) (> 60) BUN/Creatinine Ratio (6-26) Glucose (70-105) mg/dL Calculated Osmolality (280-300) Lactic Acid (0.5-2.2) mmol/L Calcium (8.6-10.3) mg/dL Phosphorus 3.1 (2.7-4.5) mg/dL Magnesium (1.6-2.6) mg/dL Total Bilirubin (0.3-1.0) mg/dL AST (13-39) Units/L ALT (7-52) Units/L Alkaline Phosphatase (34-104) Units/L Troponin I (< 0.04) ng/mL Serum Total Protein (6.4-8.9) g/dL Albumin (3.5-5.7) g/dL Globulin (2.4-3.5) g/dL Albumin/Globulin Ratio (1.1-2.2) TSH (0.340-5.600) mcIU/mL Urine Color Yellow (Yellow) Urine Clarity Clear (Clear) Urine pH 6.0 (5.0-8.0) pH Units Ur Specific [place] 1.020 (1.010-1.025) Urine Protein Negative (Neg-Trace) mg/dL Urine Glucose (UA) Normal (Normal) mg/dL Urine Ketones 15 H (Negative) mg/dL Urine Blood Trace-intact H (Negative) Urine Nitrite Negative (Negative) Urine Bilirubin Small H (Negative) Urine Urobilinogen Normal (Normal) mg/dL Ur Leukocyte Esterase Negative (Negative) Urine Microscopic RBC 0-3 (0-3) per hpf Urine Microscopic WBC 0-3 (0-3) per hpf Ur Squamous Epith Cells Few (None-Few) per lpf Urine Bacteria Few (None-Few) per hpf Hyaline Casts Few (None-Few) per lpf Urine Yeast Moderate H (None Seen) per hpf Ur Culture Indicated? YES A (NO) - Radiology Data Radiology results reviewed: Yes I reviewed the patient's radiology results. EXAMINATION: ONE XRAY VIEW OF THE CHEST 06/13/2019 2:29 pm COMPARISON: 05/29/2019 HISTORY: ORDERING SYSTEM PROVIDED HISTORY: weakness Generalized weakness FINDINGS: The cardial-pericardial silhouette is unremarkable in appearance. The lungs are clear. No pneumothorax is found. No free air is seen. No acute bony abnormality. XR/XR chest 1V portable IMPRESSION: Unremarkable portable chest radiograph. D/ / Maximus Moreno MD / Maximus Moreno MD Interpreting Provider: Maximus Moreno MD - EKG Data EKG #1 EKG attestation: Yes I reviewed and interpreted this EKG. EKG results narrative: EKG interpreted by myself as sinus rhythm with a rate of 75 a QTC of [address] elevation
[2019-06-13] MEDS ORDERED: 0.9 % Sodium Chloride 1,000 ML IVC ONE ×2 (17:07→17:54)
[2019-06-13] MEDS ORDERED: Acetaminophen 325 MG TABLET PO ONE (17:29)
[2019-06-13 17:32] LABS: Basophils # 0.1 K/mcL (0.0-0.2); Basophils % 0.5 %; Eosinophils # 0.1 K/mcL (0.0-0.6); Eosinophils % 1.3 %; Hematocrit 32.9 % (35.3-44.9); Hemoglobin 10.4 g/dL (11.5-15.4); Immature Granulocytes % 1.7 % (0-4); Lymphocytes # 2.7 K/mcL (0.6-4.6); Lymphocytes % 28.4 %; Mean Corpuscular HGB Conc 31.6 g/dL (31.6-35.5); Mean Corpuscular Hemoglobin 31.8 pg (28.0-33.3); Mean Corpuscular Volume 100.6 fL (83.0-100.0); Monocytes # 0.6 K/mcL (0.0-1.3); Monocytes % 6.8 %; Neutrophils # 5.7 K/mcL (1.6-8.9); Nucleated Red Blood Cells 0.9 /100 WBC (0); Platelet Count 228 K/mcL (140-400); Red Blood Count 3.27 M/mcL (3.82-4.97); Red Cell Distribution Width 16.3 % (11.5-14.5); Segmented Neutrophils % 61.3 %; White Blood Count 9.4 K/mcL (4.3-11.1)
[2019-06-13 17:39] LABS: Bilirubin,Urine Small (Negative); Blood,Urine Trace-intact (Negative); Clarity,Urine Clear (Clear); Color,Urine Yellow (Yellow); Glucose,Urine (UA) Normal (Normal); Ketones,Urine 15 mg/dL (Negative); Leukocyte Esterase,Urine Negative (Negative); Nitrite,Urine Negative (Negative); Protein,Urine Negative (Neg-Trace); Urobilinogen,Urine Normal (Normal)
[2019-06-13 17:45] LABS: Bacteria,Urine Few per hpf (None-Few); Hyaline Casts,Urine Few per lpf (None-Few); RBC,Urine 0-3 per hpf (0-3); Squamous Epithelial Cell,Urine Few per lpf (None-Few); WBC,Urine 0-3 per hpf (0-3); Yeast,Urine Moderate per hpf (None Seen)
[2019-06-13 17:53] LABS: Alanine Aminotransferase 8 Units/L (7-52); Albumin 3.2 g/dL (3.5-5.7); Albumin/Globulin Ratio 1.1 (1.1-2.2); Alkaline Phosphatase 75 Units/L (34-104); Aspartate Amino Transferase 24 Units/L (13-39); BUN/Creatinine Ratio 24 (6-26); Bilirubin,Total 0.3 mg/dL (0.3-1.0); Blood Urea Nitrogen 19 mg/dL (6-20); Calcium 8.3 mg/dL (8.6-10.3); Carbon Dioxide 17 mEq/L (23-29); Chloride 110 mEq/L (98-107); Glucose 137 mg/dL (70-105); Magnesium 1.1 mg/dL (1.6-2.6); Osmolality,Calculated 298 (280-300); Potassium 3.5 mEq/L (3.5-5.1); Sodium 142 mEq/L (136-145); Total Protein 6.2 g/dL (6.4-8.9); Troponin I < 0.03 ng/mL (< 0.04); eGFR For African Americans > 60 (> 60); eGFR For Non-African Americans > 60 (> 60)
[2019-06-13 18:06] LABS: Thyroid Stimulating Hormone 2.299 mcIU/mL (0.340-5.600)
[2019-06-13] MEDS ORDERED: Acetaminophen 325 MG TABLET PO PRN (19:01)
[2019-06-13] MEDS ORDERED: MOM Conc 10 ML UD.LIQ PO PRN (19:01)
[2019-06-13] MEDS ORDERED: Naloxone 0.4 MG/ML INJ IVP PRN (19:01)
[2019-06-13] MEDS ORDERED: Mag Hydrox/Al Hydrox/Simeth 30 ML UDC PO PRN (19:01)
[2019-06-13] MEDS ORDERED: Insulin DETEMIR 100 UNIT/ML per UNIT SQ ONE (21:00)
[2019-06-13] MEDS: Topiramate 25 MG TABLET PO SCH (21:50)
[2019-06-13] MEDS: Acetaminophen/Butalbital/CaffeineTABLET PO SCH (21:51)
[2019-06-13] MEDS: Divalproex (12 HR) 250 MG TABLET PO SCH (21:51)
[2019-06-13] MEDS: 0.9 % Sodium Chloride 1,000 ML IVC SCH (21:53)
[2019-06-14] MEDS: *HR* Metformin 500 MG TABLET PO SCH ×3 (01:42→17:00)
[2019-06-14] MEDS: 0.9 % Sodium Chloride 1,000 ML IVC SCH (06:27)
[2019-06-14 08:01] LABS: Basophils % 0.3 %; Eosinophils # 0.1 K/mcL (0.0-0.6); Hematocrit 27.7 % (35.3-44.9); Hemoglobin 8.9 g/dL (11.5-15.4); Lymphocytes # 3.2 K/mcL (0.6-4.6); Lymphocytes % 46.6 %; Mean Corpuscular HGB Conc 32.1 g/dL (31.6-35.5); Mean Corpuscular Volume 99.6 fL (83.0-100.0); Mean Platelet Volume 8.9 fL (9.4-12.4); Monocytes # 0.5 K/mcL (0.0-1.3); Monocytes % 7.6 %; Neutrophils # 2.9 K/mcL (1.6-8.9); Nucleated Red Blood Cells 0.4 /100 WBC (0); Platelet Count 197 K/mcL (140-400); Red Blood Count 2.78 M/mcL (3.82-4.97); Red Cell Distribution Width 16.6 % (11.5-14.5); Segmented Neutrophils % 42.5 %; White Blood Count 6.9 K/mcL (4.3-11.1)
[2019-06-14] MEDS: Acetaminophen/Butalbital/CaffeineTABLET PO SCH ×2 (08:05→20:18)
[2019-06-14] MEDS: Aspirin Enteric Coated 81 MG Tablet PO SCH (08:05)
[2019-06-14] MEDS: Divalproex (12 HR) 250 MG TABLET PO SCH ×2 (08:05→20:19)
[2019-06-14] MEDS: Topiramate 25 MG TABLET PO SCH ×2 (08:06→20:20)
[2019-06-14] MEDS: Metoprolol XL (24 HR) Succ 50 MG TAB.ER.24H PO SCH (08:06)
[2019-06-14 08:20] LABS: BUN/Creatinine Ratio 25 (6-26); Blood Urea Nitrogen 15 mg/dL (6-20); Calcium 7.2 mg/dL (8.6-10.3); Carbon Dioxide 22 mEq/L (23-29); Chloride 114 mEq/L (98-107); Glucose 66 mg/dL (70-105); Magnesium 1.4 mg/dL (1.6-2.6); Osmolality,Calculated 295 (280-300); Potassium 3.3 mEq/L (3.5-5.1); Sodium 143 mEq/L (136-145); eGFR For African Americans > 60 (> 60); eGFR For Non-African Americans > 60 (> 60)
[2019-06-14] MEDS ORDERED: FLUoxetine 20 MG CAPSULE PO SCH (09:00)
--- NOTE | 2019-06-14 15:11 | Internal Med History&Physical ---
Date of Encounter: 06/14/19 Time of Encounter: 14:40 Assessment and Plan (1) Multiple falls Current visit: No Status: Acute Possibly multifactorial etiology including worsening anemia and hypomagnesemia causing muscle weakness. PT and OT evaluations will be ordered. (2) Weakness Current visit: Yes Status: Acute Possibly multifactorial etiology including hypomagnesemia and borderline hypokalemia. PT and OT evaluations will be ordered. (3) Lactic acidosis Current visit: Yes Status: Acute Now resolved on follow-up labs. (4) Anemia Current visit: Yes Status: Acute Progressive decline in hemoglobin since 12.5 on 05/29/2019. Anemia testing will be ordered. Stool guaiac likely positive due to aspirin use. Further workup will be done as needed. Qualifiers: Anemia type: unspecified type Qualified Code(s): D64.9 - Anemia, unspecified (5) Hypertension Current visit: No Status: Chronic Continue Toprol-XL. Qualifiers: Hypertension type: essential hypertension Qualified Code(s): I10 - Essential (primary) hypertension (6) DM type 2 (diabetes mellitus, type 2) Current visit: No Status: Chronic Hemoglobin A1c was 7.8% on 05/31/2019. Continue metformin and Accu-Cheks with SSI. Qualifiers: Diabetes mellitus residential insulin use: with residential use Diabetes mellitus complication status: with neurologic complications Diabetes mellitus complication detail: with polyneuropathy Qualified Code(s): E11.42 - Type 2 diabetes mellitus with diabetic polyneuropathy; Z79.4 - half-way (current) use of insulin (7) Seizure disorder Current visit: No Status: Chronic Continue Topamax and Depakote. (8) Chronic low back pain Current visit: No Status: Chronic Continue Zapata and gabapentin. Qualifiers: Back pain laterality: unspecified Sciatica presence: unspecified whether sciatica present Qualified Code(s): M54.5 - Low back pain; G89.29 - Other chronic pain (9) Anxiety and depression Current visit: No Status: Chronic Continue Xanax as needed. (10) Weight loss Current visit: No Status: Acute TSH was normal at 2.299 in emergency room. Chest CT will be ordered. Abdominal/pelvic CT 05/29/2019 showed no pathology suspicious for malignancy. (11) Hypomagnesemia Current visit: Yes Status: Acute Supplemental magnesium has been given IV. Labs will be monitored. Internal Medicine - H&P: HPI Chief complaint: Falls, weakness, anemia, hypomagnesemia Admitted From: Emergency Dept Plans for Post Hospital Care: Home History of present illness: Ms. Rios is a 59 year old female who came to emergency room stating she had 2 falls at home within a 3 hour period. She reports the initial fall occurred approximately 0300 the day of admission. She called 911 and police officers came and assisted her back to bed. Approximately 3 hours later she had another fall and was unable to get up. She reports lying in the floor for several hours before she decided to call EMS. She was brought to emergency room and evaluated and was found to have worsened anemia, hypomagnesemia, and lactic acidosis. She was admitted to [facility] for ongoing care needs. She was discharged from [facility] June 01 after admission May 30 for acute renal insufficiency. She has not seen her PCP for follow-up since discharge. She denies vomiting or diarrhea. She denies any significant injury from falls earlier the day of admission. Past Med Surg Social Fam HX - Past Medical History Medical history: arthritis, diabetes, hyperlipidemia, hypertension, migraine, seizures Additional medical history: Chronic Lower back pain with 2 prior back surgeries Psychiatric history: anxiety, depression - Past Surgical History Surgical History: , orthopedic, other, other Additional surgical history: chronic pain,uterine fibroids. baCK - Social History Smoking Status: Current every day smoker Smokeless Tobacco Status: No Alcohol use: none Drug use: none - Family History Father Living Status: Hx Family Endocrine Disorder: Yes Internal Medicine - H&P: Meds Aspirin [Lo-Dose Aspirin EC] 81 mg PO DAILY 04/25/16 [History] Divalproex (12 HR) [Depakote (12 HR)] 1,000 mg PO BID 04/25/16 [History] Esomeprazole Magnesium [Nexium] 40 mg PO DAILY 04/25/16 [History] Gabapentin [Neurontin] 300 mg PO TID 04/25/16 [History] HYDROcodone/Acet 10/325 mg [[place] 10-325 mg] 1 tab PO QID PRN 04/25/16 [History] Insulin ASPART [NovoLOG] 10 - 14 unit SQ QID 04/25/16 [History] Insulin Glargine [Lantus] 18 unit SQ HS 04/25/16 [History] Metformin HCl [Glucophage] 1,000 mg PO BID 04/25/16 [History] Metoprolol XL (24 HR) Succ [Toprol Xl] 50 mg PO DAILY 04/25/16 [History] Promethazine [Phenergan] 25 mg PO Q6HR 04/25/16 [History] Topiramate [Topamax] 100 mg PO BID 04/25/16 [History] ALPRAZolam [Xanax 0.5 MG Tablet] 0.5 tab PO BID PRN 05/29/19 [History] Butalb/Acetaminophen/Caffeine [Fioricet 50-300-40 mg Capsule] 1 each PO BID 0 05/29/19 [History] Cyclobenzaprine [Flexeril] 10 mg PO TID 05/29/19 [History] FLUoxetine HCl [Fluoxetine HCl] 40 mg PO DAILY 05/29/19 [History] Oxybutynin [Ditropan] 5 mg PO BID 05/29/19 [History] Tizanidine HCl [Zanaflex] 2 mg PO HS 05/29/19 [History] Allergy/AdvReac Type Severity Reaction Status Date / Time oxycodone [Oxycodone] Allergy Vomiting Verified 04/22/19 13:52 amitriptyline AdvReac See Verified 04/22/19 13:52 Comments morphine AdvReac See Verified 04/22/19 13:51 Comments All Systems PM: A 10-system review of systems was performed and is negative for pertinent findings except as documented above in the HPI. Review of systems: Review of systems from her previous May 2019 [facility] hospitalization were reviewed and revised as below. Gen.: Her weight has decreased from 80.739 kg on 04/22/2019 to 68.039 kg at present Cardiovascular: She has history of hypertension but denies RI heart failure angina DVT or pulmonary embolus Respiratory: She has smoked since age 14 up to one and a half packs per day. She has not been diagnosed with chronic lung disease and does not use home oxygen. 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 She reports her last seizure was approximately one year ago. She has occasional migraine headaches. She denies large distribution strokes. She has been diagnosed with diabetic peripheral neuropathy. Endocrine: She was diagnosed with DM 2 approximately age 30. She denies thyroid disease or hyperlipidemia Hematology/oncology: She denies blood disorders cancers or anemia Psychiatric: She has anxiety and depression but denies other mental health diagnoses. Hospitalization March 2019 [facility] was due to multiple falls possibly from increased Prozac dose. She has remained on the lower dose 20 mg daily since discharge. [place] skeletal: She had low back surgery approximately 2000 and has chronic low back pain. She has DJD but denies gout or other bone joint or muscle disorders. - Constitutional Vitals: Temp Pulse Resp BP Pulse Ox 98.4 F 74 16 98/63 96 06/14/19 14:25 06/14/19 14:25 06/14/19 14:25 06/14/19 14:25 06/14/19 14:25 Exam: Gen.: She is a well-developed well-nourished female lying in bed who appears in no acute distress at present time HEENT: Head is atraumatic and normocephalic. Eyes: EOMI. There is no scleral icterus. Mouth: Mucosa is moist. Neck: Supple and nontender. There is no thyromegaly or adenopathy noted. Heart: Regular without murmurs gallops or ectopics Lungs: No wheezes or crackles are heard. Abdomen: Soft and nontender. No masses or guarding are noted. Extremities: She has an ecchymosis on her anterior lateral right humeral head area. There is no cyanosis edema or clubbing noted. Dorsalis pedis and posterior tibial pulses are trace to 1+ palpable bilaterally. Neurologic: Mental status: She is talkative and a fair to good historian. Cranial nerves: Smile is symmetric. Forehead wrinkles bilaterally. Tongue protrudes midline. EOMI. Motor: There is no pronator drift. Cerebellar: Fair to nose is intact bilaterally. Skin: Warm and dry Internal Med - H&P Results - Labs CBC & Chem 7: 06/14/19 07:42 06/14/19 07:42 Labs: Short CBC 06/13/19 06/14/19 Range/Units 17:24 07:42 WBC 9.4 6.9 (4.3-11.1) K/mcL Hgb 10.4 L 8.9 L D (11.5-15.4) g/dL Hct 32.9 L 27.7 L (35.3-44.9) % Plt Count 228 197 (140-400) K/mcL Neutrophils # 5.7 2.9 (1.6-8.9) K/mcL BMP 06/13/19 06/14/19 17:24 07:42 Sodium 142 143 Potassium 3.5 3.3 L Chloride 110 H 114 H Carbon Dioxide 17 L 22 L BUN 19 15 Creatinine 0.79 0.59 L Glucose 137 H 66 L Calcium 8.3 L 7.2 L Cardiac Enzymes 06/13/19 Range/Units 17:24 Troponin I < 0.03 (< 0.04) ng/mL Liver Function 06/13/19 Range/Units 17:24 Total Bilirubin 0.3 (0.3-1.0) mg/dL AST 24 (13-39) Units/L ALT 8 (7-52) Units/L Alkaline Phosphatase 75 (34-104) Units/L Albumin 3.2 L (3.5-5.7) g/dL Urine 06/13/19 Range/Units 17:30 Urine Color Yellow (Yellow) Urine Clarity Clear (Clear) Urine pH 6.0 (5.0-8.0) pH Units Ur Specific [place] 1.020 (1.010-1.025) Urine Protein Negative (Neg-Trace) mg/dL Urine Glucose (UA) Normal (Normal) mg/dL - Impressions ITS Impressions Chest X-Ray 06/13/19 17:07 IMPRESSION: Unremarkable portable chest radiograph. D/ / Maximus Moreno MD / Maximus Moreno MD Interpreting Provider: Maximus Moreno MD
[2019-06-14] MEDS: *HR* HYDROcodone/Acet 5/325 mg TABLET PO PRN (16:05)
--- NOTE | 2019-06-14 16:20 | Electrocardiograph Report ---
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
[2019-06-14] MEDS: 0.45 % Sodium Chloride w/KCl 20 MEQ/1,000 ML MLS IVC SCH (20:21)
[2019-06-14 21:20] LABS: % Iron Saturation 20 % (15-50); Iron 39 mcg/dL (50-170); Transferrin 141 mg/dL (203-362)
[2019-06-14 21:39] LABS: Ferritin 41 ng/mL (10-120)
[2019-06-14 21:55] LABS: Folate 9.2 ng/mL (3.0-16.0)
[2019-06-15] MEDS: *HR* HYDROcodone/Acet 5/325 mg TABLET PO PRN (02:49)
[2019-06-15] MEDS: 0.45 % Sodium Chloride w/KCl 20 MEQ/1,000 ML MLS IVC SCH (05:41)
[2019-06-15 06:54] LABS: Basophils % 0.5 %; Eosinophils # 0.1 K/mcL (0.0-0.6); Eosinophils % 2.3 %; Hemoglobin 8.9 g/dL (11.5-15.4); Immature Granulocytes % 1.6 % (0-4); Lymphocytes # 3.5 K/mcL (0.6-4.6); Lymphocytes % 55.7 %; Mean Corpuscular HGB Conc 31.8 g/dL (31.6-35.5); Mean Corpuscular Hemoglobin 31.9 pg (28.0-33.3); Mean Corpuscular Volume 100.4 fL (83.0-100.0); Mean Platelet Volume 9.7 fL (9.4-12.4); Monocytes # 0.4 K/mcL (0.0-1.3); Monocytes % 6.3 %; Neutrophils # 2.1 K/mcL (1.6-8.9); Nucleated Red Blood Cells 0.3 /100 WBC (0); Platelet Count 191 K/mcL (140-400); Red Blood Count 2.79 M/mcL (3.82-4.97); Red Cell Distribution Width 16.9 % (11.5-14.5); Segmented Neutrophils % 33.6 %; White Blood Count 6.2 K/mcL (4.3-11.1)
[2019-06-15 07:07] LABS: Magnesium 1.5 mg/dL (1.6-2.6)
[2019-06-15 07:17] LABS: BUN/Creatinine Ratio 22 (6-26); Blood Urea Nitrogen 14 mg/dL (6-20); Calcium 7.5 mg/dL (8.6-10.3); Carbon Dioxide 21 mEq/L (23-29); Chloride 113 mEq/L (98-107); Glucose 163 mg/dL (70-105); Osmolality,Calculated 296 (280-300); Potassium 4.2 mEq/L (3.5-5.1); Sodium 141 mEq/L (136-145); eGFR For African Americans > 60 (> 60); eGFR For Non-African Americans > 60 (> 60)
[2019-06-15] MEDS: Aspirin Enteric Coated 81 MG Tablet PO SCH (08:13)
[2019-06-15] MEDS: Divalproex (12 HR) 250 MG TABLET PO SCH ×2 (08:13→20:01)
[2019-06-15] MEDS: Acetaminophen/Butalbital/CaffeineTABLET PO SCH ×2 (08:14→20:02)
[2019-06-15] MEDS: FLUoxetine 20 MG CAPSULE PO SCH (08:14)
[2019-06-15] MEDS: *HR* Metformin 500 MG TABLET PO SCH ×3 (08:15→17:02)
--- NOTE | 2019-06-15 10:45 | Internal Med Progress Note ---
Date of Encounter: 06/15/19 Time of Encounter: 10:37 - Assessment and plan (1) Multiple falls Current Visit: No Status: Acute Assessment and plan: June 15. Continue PT and OT intervention. (2) Weakness Current Visit: Yes Status: Acute Assessment and plan: June 15. Continue PT and OT intervention. (3) Lactic acidosis Current Visit: Yes Status: Acute Assessment and plan: June 15. Resolved (4) Anemia Current Visit: Yes Status: Acute Assessment and plan: June 15. Anemia testing showed iron 39, transferrin saturation 20%, transf briseyda 141, ferritin 41, B12 271, and folate 9.2. Hemoglobin stable today at 8.9. Continue to monitor. MMA will be ordered since B12 borderline low. Qualifiers: Anemia type: unspecified type Qualified Code(s): D64.9 - Anemia, unspecified (5) Hypertension Current Visit: No Status: Chronic Assessment and plan: June 15. Continue Toprol XL. Qualifiers: Hypertension type: essential hypertension Qualified Code(s): I10 - Essential (primary) hypertension (6) DM type 2 (diabetes mellitus, type 2) Current Visit: No Status: Chronic Assessment and plan: June 15. Hemoglobin A1c was 7.8% on 05/31/2019. Continue metformin and Accu- Cheks with SSI. 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 Continue Topamax and Depakote. (8) Chronic low back pain Current Visit: No Status: Chronic Assessment and plan: June 15. Continue scheduled Tylenol and gabapentin. Sacul available as needed. Qualifiers: Back pain laterality: unspecified Sciatica presence: unspecified whether sciatica present Qualified Code(s): M54.5 - Low back pain; G89.29 - Other chronic pain (9) Anxiety and depression Current Visit: No Status: Chronic Assessment and plan: June 15. Continue Xanax as needed. (10) Weight loss Current Visit: No Status: Acute Assessment and plan: June 15. TSH normal at 2.[address] unremarkable for any pathologies suspicious for malignancy. Continue to monitor. (11) Hypomagnesemia Current Visit: Yes Status: Acute Assessment and plan: June 15. Magnesium level improved to 1.5. Start oral magnesium oxide. - Subjective Interval history: June 15. She has no new complaints except soreness on her left side from falls at home. - Constitutional Vitals: Temp Pulse Resp BP Pulse Ox 97.3 F L 66 14 125/78 97 06/15/19 05:44 06/15/19 07:45 06/15/19 05:44 06/15/19 07:45 06/15/19 05:44 Exam: She is resting comfortably in bed and appears in no acute distress. Her affect is cheerful. There is no pain on internal and external rotation of the left hip. There is no extremity edema. She has some ecchymosis on her left posterior lateral gluteal area and left lower abdominal area. I reviewed her medications, lab results, and vital signs. Internal Medicine: Result - Labs CBC & Chem 7: 06/15/19 05:39 06/15/19 05:39 Labs: Short CBC 06/15/19 Range/Units 05:39 WBC 6.2 (4.3-11.1) K/mcL Hgb 8.9 L (11.5-15.4) g/dL Hct 28.0 L (35.3-44.9) % Plt Count 191 (140-400) K/mcL Neutrophils # 2.1 (1.6-8.9) K/mcL BMP 06/15/19 05:39 Sodium 141 Potassium 4.2 D Chloride 113 H Carbon Dioxide 21 L BUN 14 Creatinine 0.63 Glucose 163 H Calcium 7.5 L - Impressions Impressions Chest CT 06/14/19 15:30 IMPRESSION: 1. No acute findings or etiology evident to explain the patient's weight loss and anemia. 2. Severe coronary artery atherosclerosis. D/ / Agustin Bella MD / Agustin Bella MD Interpreting Provider: Agustin Bella MD Consult Discharge Plan - Plan Referrals: Odalys Moura, CORE FINISHER [Primary Care Provider] - 1 week
[2019-06-15] MEDS: Acetaminophen 325 MG TABLET PO SCH ×3 (12:04→23:56)
[2019-06-15] MEDS: Topiramate 25 MG TABLET PO SCH ×2 (12:05→20:01)
[2019-06-15] MEDS: Metoprolol XL (24 HR) Succ 50 MG TAB.ER.24H PO SCH (12:05)
[2019-06-15] MEDS: Magnesium Oxide 400 MG TABLET PO SCH (20:02)
[2019-06-16] MEDS: *HR* HYDROcodone/Acet 5/325 mg TABLET PO PRN ×4 (00:21→22:09)
[2019-06-16] MEDS: *HR* Metformin 500 MG TABLET PO SCH ×2 (08:27→16:10)
[2019-06-16] MEDS: Acetaminophen/Butalbital/CaffeineTABLET PO SCH ×2 (08:27→21:11)
[2019-06-16] MEDS: Divalproex (12 HR) 250 MG TABLET PO SCH ×2 (08:27→21:12)
[2019-06-16] MEDS: FLUoxetine 20 MG CAPSULE PO SCH (08:28)
[2019-06-16] MEDS: Aspirin Enteric Coated 81 MG Tablet PO SCH (08:28)
[2019-06-16] MEDS: Topiramate 25 MG TABLET PO SCH (08:28)
[2019-06-16] MEDS: Magnesium Oxide 400 MG TABLET PO SCH ×2 (08:28→21:12)
[2019-06-16] MEDS: Acetaminophen 325 MG TABLET PO SCH ×2 (08:28→11:43)
[2019-06-16] MEDS: Metoprolol XL (24 HR) Succ 50 MG TAB.ER.24H PO SCH (08:28)
--- NOTE | 2019-06-16 12:43 | Internal Med Progress Note ---
Date of Encounter: 06/16/19 Time of Encounter: 12:35 - Assessment and plan (1) Multiple falls Current Visit: No Status: Acute Assessment and plan: June 15. Continue PT and OT intervention. (2) Weakness Current Visit: Yes Status: Acute Assessment and plan: June 15. Continue PT and OT intervention. (3) Lactic acidosis Current Visit: Yes Status: Acute Assessment and plan: June 15. Resolved (4) Anemia Current Visit: Yes Status: Acute Assessment and plan: June 15. Anemia testing showed iron 39, transferrin saturation 20%, transf birseyda 141, ferritin 41, B12 271, and folate 9.2. Hemoglobin stable today at 8.9. Continue to monitor. MMA will be ordered since B12 borderline low. June 16. MMA pending. Recheck labs in a.m. Qualifiers: Anemia type: unspecified type Qualified Code(s): D64.9 - Anemia, unspecified (5) Hypertension Current Visit: No Status: Chronic Assessment and plan: June 15. Continue Toprol XL. June 16. Blood pressure borderline low. Reduce Toprol-XL to 25 mg daily. Qualifiers: Hypertension type: essential hypertension Qualified Code(s): I10 - Essential (primary) hypertension (6) DM type 2 (diabetes mellitus, type 2) Current Visit: No Status: Chronic Assessment and plan: June 15. Hemoglobin A1c was 7.8% on 05/31/2019. Continue metformin and Accu- Cheks with SSI. Qualifiers: Diabetes mellitus assisted insulin use: with assisted use Diabetes mellitus complication status: with neurologic complications Diabetes mellitus complication detail: with polyneuropathy Qualified Code(s): E11.42 - Type 2 diabetes mellitus with diabetic polyneuropathy; Z79.4 - alf (current) use of insulin (7) Seizure disorder Current Visit: No Status: Chronic Assessment and plan: June 15. Continue Topamax and Depakote. (8) Chronic low back pain Current Visit: No Status: Chronic Assessment and plan: June 15. Continue scheduled Tylenol and gabapentin. [place] available as needed. Qualifiers: Back pain laterality: unspecified Sciatica presence: unspecified whether sciatica present Qualified Code(s): M54.5 - Low back pain; G89.29 - Other chronic pain (9) Anxiety and depression Current Visit: No Status: Chronic Assessment and plan: June 15. Continue Xanax as needed. (10) Weight loss Current Visit: No Status: Acute Assessment and plan: June 15. TSH normal at 2.[address] unremarkable for any pathologies suspicious for malignancy. Continue to monitor. (11) Hypomagnesemia Current Visit: Yes Status: Acute Assessment and plan: June 15. Magnesium level improved to 1.5. Start oral magnesium oxide. June 16. Recheck labs in a.m. (12) Left hip pain Current Visit: Yes Status: Acute Assessment and plan: June 16. Left hip x-ray will be ordered. - Subjective Interval history: June 15. She has no new complaints except soreness on her left side from falls at home. June 16. She complains of headache and ongoing pain in her left hip. - Constitutional Vitals: Temp Pulse Resp BP Pulse Ox 98.1 F 76 16 92/59 98 06/16/19 06:56 06/16/19 06:56 06/16/19 06:56 06/16/19 06:56 06/16/19 06:56 Exam: She is resting comfortably in bed and appears in no acute distress. Her affect is overall cheerful. I reviewed her medications and past lab results. Internal Medicine: Result - Labs CBC & Chem 7: 06/15/19 05:39 06/15/19 05:39 Consult Discharge Plan - Plan Referrals: Odalys Moura CNP [Primary Care Provider] - 1 week
[2019-06-16] MEDS: Topiramate 100 MG TABLET PO SCH (21:12)
[2019-06-17 05:45] LABS: Basophils % 0.3 %; Eosinophils # 0.2 K/mcL (0.0-0.6); Eosinophils % 2.5 %; Hemoglobin 10.1 g/dL (11.5-15.4); Immature Granulocytes % 1.5 % (0-4); Lymphocytes # 3.3 K/mcL (0.6-4.6); Lymphocytes % 47.3 %; Mean Corpuscular HGB Conc 31.6 g/dL (31.6-35.5); Mean Corpuscular Hemoglobin 31.6 pg (28.0-33.3); Mean Platelet Volume 10.7 fL (9.4-12.4); Monocytes # 0.4 K/mcL (0.0-1.3); Monocytes % 6.4 %; Neutrophils # 2.9 K/mcL (1.6-8.9); Nucleated Red Blood Cells 0.3 /100 WBC (0); Platelet Count 176 K/mcL (140-400); Red Cell Distribution Width 16.6 % (11.5-14.5); White Blood Count 6.9 K/mcL (4.3-11.1)
[2019-06-17] MEDS: *HR* HYDROcodone/Acet 5/325 mg TABLET PO PRN ×3 (05:46→18:32)
[2019-06-17 06:06] LABS: BUN/Creatinine Ratio 20 (6-26); Blood Urea Nitrogen 13 mg/dL (6-20); Calcium 7.9 mg/dL (8.6-10.3); Carbon Dioxide 22 mEq/L (23-29); Chloride 109 mEq/L (98-107); Glucose 142 mg/dL (70-105); Magnesium 1.2 mg/dL (1.6-2.6); Osmolality,Calculated 291 (280-300); Potassium 4.2 mEq/L (3.5-5.1); Sodium 139 mEq/L (136-145); eGFR For African Americans > 60 (> 60); eGFR For Non-African Americans > 60 (> 60)
[2019-06-17] MEDS: Divalproex (12 HR) 250 MG TABLET PO SCH ×2 (08:17→20:01)
[2019-06-17] MEDS: Aspirin Enteric Coated 81 MG Tablet PO SCH (08:18)
[2019-06-17] MEDS: FLUoxetine 20 MG CAPSULE PO SCH (08:18)
[2019-06-17] MEDS: Metoprolol XL (24 HR) Succ 25 MG TAB.ER.24H PO SCH (08:18)
[2019-06-17] MEDS: *HR* Metformin 500 MG TABLET PO SCH ×2 (08:18→16:29)
[2019-06-17] MEDS: Topiramate 100 MG TABLET PO SCH ×2 (08:18→20:01)
[2019-06-17] MEDS: Acetaminophen/Butalbital/CaffeineTABLET PO SCH ×2 (08:18→20:02)
[2019-06-17] MEDS: Magnesium Oxide 400 MG TABLET PO SCH ×2 (08:19→20:02)
--- NOTE | 2019-06-17 19:20 | Internal Med Progress Note ---
Date of Encounter: 06/17/19 Time of Encounter: 19:10 - Assessment and plan (1) Multiple falls Current Visit: No Status: Acute Assessment and plan: June 15. Continue PT and OT intervention. (2) Weakness Current Visit: Yes Status: Acute Assessment and plan: June 15. Continue PT and OT intervention. (3) Lactic acidosis Current Visit: Yes Status: Acute Assessment and plan: June 15. Resolved (4) Anemia Current Visit: Yes Status: Acute Assessment and plan: June 15. Anemia testing showed iron 39, transferrin saturation 20%, transf briseyda 141, ferritin 41, B12 271, and folate 9.2. Hemoglobin stable today at 8.9. Continue to monitor. MMA will be ordered since B12 borderline low. June 16. MMA pending. Recheck labs in a.m. June 17. MMA pending. Hemoglobin improved to 10.1 today. Continue to monitor. Qualifiers: Anemia type: unspecified type Qualified Code(s): D64.9 - Anemia, unspecified (5) Hypertension Current Visit: No Status: Chronic Assessment and plan: June 15. Continue Toprol XL. June 16. Blood pressure borderline low. Reduce Toprol-XL to 25 mg daily. June 17. Blood pressure stable. Continue present dose Toprol-XL. Qualifiers: Hypertension type: essential hypertension Qualified Code(s): I10 - Essential (primary) hypertension (6) DM type 2 (diabetes mellitus, type 2) Current Visit: No Status: Chronic Assessment and plan: June 15. Hemoglobin A1c was 7.8% on 05/31/2019. Continue metformin and Accu- Cheks with SSI. Qualifiers: Diabetes mellitus exterminator helper insulin use: with exterminator helper use Diabetes mellitus complication status: with neurologic complications Diabetes mellitus complication detail: with polyneuropathy Qualified Code(s): E11.42 - Type 2 diabetes mellitus with diabetic polyneuropathy; Z79.4 - [facility] (current) use of insulin (7) Seizure disorder Current Visit: No Status: Chronic Assessment and plan: June 15. Continue Topamax and Depakote. (8) Chronic low back pain Current Visit: No Status: Chronic Assessment and plan: June 15. Continue scheduled Tylenol and gabapentin. [place] available as needed. June 17. She now reports she was not taking Fioricet at home but was taking [place] 10/325 qid. Will order this. Qualifiers: Back pain laterality: unspecified Sciatica presence: unspecified whether sciatica present Qualified Code(s): M54.5 - Low back pain; G89.29 - Other chronic pain (9) Anxiety and depression Current Visit: No Status: Chronic Assessment and plan: June 15. Continue Xanax as needed. (10) Weight loss Current Visit: No Status: Acute Assessment and plan: June 15. TSH normal at 2.[address] unremarkable for any pathologies suspicious for malignancy. Continue to monitor. (11) Hypomagnesemia Current Visit: Yes Status: Acute Assessment and plan: June 15. Magnesium level improved to 1.5. Start oral magnesium oxide. June 16. Recheck labs in a.m. June 17. Magnesium is decreased to 1.2. She will be given IV magnesium sulfate and start higher dose oral magnesium oxide. Continue to monitor labs. (12) Left hip pain Current Visit: Yes Status: Acute Assessment and plan: June 16. Left hip x-ray will be ordered. June 17. Hip x-ray showed no fracture. Start [place] 10/325 as at home. - Subjective Interval history: June 15. She has no new complaints except soreness on her left side from falls at home. June 16. She complains of headache and ongoing pain in her left hip. June 17. She has no new complaints. She states she still has a headache and some pain in her left hip. - Constitutional Vitals: Temp Pulse Resp BP Pulse Ox 98.7 F 80 20 113/87 97 06/17/19 16:02 06/17/19 16:02 06/17/19 16:02 06/17/19 16:02 06/17/19 16:02 Exam: She is lying in bed and appears in no significant distress. Her affect is overall cheerful. I reviewed her medications, lab results, and hip x-ray Internal Medicine: Result - Labs CBC & Chem 7: 06/17/19 05:00 06/17/19 05:00 Labs: Short CBC 06/17/19 Range/Units 05:00 WBC 6.9 (4.3-11.1) K/mcL Hgb 10.1 L (11.5-15.4) g/dL Hct 32.0 L (35.3-44.9) % Plt Count 176 (140-400) K/mcL Neutrophils # 2.9 (1.6-8.9) K/mcL BMP 06/17/19 05:00 Sodium 139 Potassium 4.2 Chloride 109 H Carbon Dioxide 22 L BUN 13 Creatinine 0.65 Glucose 142 H Calcium 7.9 L - Impressions Impressions Hip X-Ray 06/16/19 12:45 IMPRESSION: 1. No acute osseous abnormality of the pelvis and left hip. 2. Mild bilateral hip osteoarthritis, left greater than right. D/ /16/2019 17:38:34 Shivani Jeong MD / sarah Interpreting Provider: Shivani Jeong MD Consult Discharge Plan - Plan Referrals: Odalys Moura WATCH CASER [Primary Care Provider] - 1 week
[2019-06-17] MEDS: *HR* HYDROcodone/Acet 10/325 mg TABLET PO SCH (20:03)
[2019-06-18] MEDS: *HR* HYDROcodone/Acet 10/325 mg TABLET PO SCH ×2 (01:39→08:03)
[2019-06-18 06:58] VITALS: BP 105/61
[2019-06-18] MEDS: Aspirin Enteric Coated 81 MG Tablet PO SCH (08:03)
[2019-06-18] MEDS: Topiramate 100 MG TABLET PO SCH (08:03)
[2019-06-18] MEDS: *HR* Metformin 500 MG TABLET PO SCH (08:03)
[2019-06-18] MEDS: Metoprolol XL (24 HR) Succ 25 MG TAB.ER.24H PO SCH (08:03)
[2019-06-18] MEDS: Divalproex (12 HR) 250 MG TABLET PO SCH (08:03)
[2019-06-18] MEDS: FLUoxetine 20 MG CAPSULE PO SCH (08:03)
[2019-06-18] MEDS: Magnesium Oxide 400 MG TABLET PO SCH (08:04)
[2019-06-18] MEDS: Acetaminophen/Butalbital/CaffeineTABLET PO SCH (08:04)
--- NOTE | 2019-06-18 11:09 | Discharge Summary ---
Orders not resulted at time of discharge: Pending orders 06/15/19 11:42 MMA (VIT B12 STATUS) Routine Date of Encounter: 06/18/19 Time of Encounter: 11:00 - Discharge Diagnosis (1) Multiple falls Priority: Primary Status: Acute (2) Weakness Priority: Secondary Status: Acute (3) Lactic acidosis Priority: Secondary Status: Resolved (4) Anemia Priority: Secondary Status: Acute Qualifiers: Anemia type: unspecified type Qualified Code(s): D64.9 - Anemia, unspecified (5) Hypertension Priority: Secondary Status: Chronic Qualifiers: Hypertension type: essential hypertension Qualified Code(s): I10 - Essential (primary) hypertension (6) DM type 2 (diabetes mellitus, type 2) Priority: Secondary Status: Chronic Qualifiers: Diabetes mellitus joint terminal attack controller insulin use: with joint terminal attack controller use Diabetes mellitus complication status: with neurologic complications Diabetes mellitus complication detail: with polyneuropathy Qualified Code(s): E11.42 - Type 2 diabetes mellitus with diabetic polyneuropathy; 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 Rios is a 59 year old female who came to emergency room stating she had 2 falls at home within a 3 hour period. She reports the initial fall occurred approximately 0300 the day of admission. She called 911 and police officers came and assisted her back to bed. Approximately 3 hours later she had another fall and was unable to get up. She reports lying in the floor for several hours before she decided to call EMS. She was brought to emergency room and evaluated and was found to have worsened anemia, hypomagnesemia, and lactic acidosis. She was admitted to [facility] for ongoing care needs. Initial orders were written by the emergency room physician. I saw her on June 14 and performed a history and physical. She had physical therapy and occupational therapy evaluation with ongoing intervention. Several medications potentially causing sedation were discontinued. She made satisfactory progress in therapy. It was felt she would benefit from ongoing therapy in SNF. She was agreeable to this plan. Anemia testing showed iron 39, transferrin saturation 20%, transferrin 141, ferritin 41, B12 271, and folate 9.2. MMA was pending at time of discharge. Toprol-XL was reduced 25 mg daily due to borderline hypotension. Blood pressure stabilized and she will remain on this dose at discharge. Hemoglobin A1c was 7.8% on 05/31/2019. Metformin was continued. Lower dose Lantus will be given and Accu-Cheks monitored at the [facility]. [place] 10/325 was ordered scheduled every 6 hours and gabapentin will be continued as at home. Left hip X-ray showed DJD changes. Magnesium dose was increased and level will be monitored at the SNF. On June 18 arrangements were complete for her to be discharged to [facility]. She will follow with me there. - Time Spent with Patient Total time spent providing and/or coordinating discharge services: - Discharge Medications Prescriptions: New Magnesium Oxide [Mag-Ox] 400 mg PO TID tablet HYDROcodone/Acet 10/325 mg [[place] 10-325 mg] 1 each PO Q6H 30 Days #120 tablet FLUoxetine HCl [Prozac] 20 mg PO DAILY capsule Metoprolol XL (24 HR) Succ [Toprol Xl] 25 mg PO DAILY tab.er.24h Continued Divalproex (12 HR) [Depakote (12 HR)] 1,000 mg PO BID HYDROcodone/Acet 10/325 mg [[place] 10-325 mg] 1 tab PO QID PRN PRN Reason: Pain Topiramate [Topamax] 100 mg PO BID Metformin HCl [Glucophage] 1,000 mg PO BID Aspirin [Lo-Dose Aspirin EC] 81 mg PO DAILY Changed Insulin Glargine [Lantus] 10 unit SQ HS #0 Discontinued Gabapentin [Neurontin] 300 mg PO TID Metoprolol XL (24 HR) Succ [Toprol Xl] 50 mg PO DAILY Insulin ASPART [NovoLOG] 10 - 14 unit SQ QID Promethazine [Phenergan] 25 mg PO Q6HR Esomeprazole Magnesium [Nexium] 40 mg PO DAILY Tizanidine HCl [Zanaflex] 2 mg PO HS Oxybutynin [Ditropan] 5 mg PO BID FLUoxetine HCl [Fluoxetine HCl] 40 mg PO DAILY Cyclobenzaprine [Flexeril] 10 mg PO TID Butalb/Acetaminophen/Caffeine [Fioricet 50-300-40 mg Capsule] 1 each PO BID ALPRAZolam [Xanax 0.5 MG Tablet] 0.5 tab PO BID PRN PRN Reason: Anxiety Home Medications: Aspirin [Lo-Dose Aspirin EC] 81 mg PO DAILY 04/25/16 [History] Divalproex (12 HR) [Depakote (12 HR)] 1,000 mg PO BID 04/25/16 [History] HYDROcodone/Acet 10/325 mg [[place] 10-325 mg] 1 tab PO QID PRN 04/25/16 [History] Metformin HCl [Glucophage] 1,000 mg PO BID 04/25/16 [History] Topiramate [Topamax] 100 mg PO BID 04/25/16 [History] FLUoxetine HCl [Prozac] 20 mg PO DAILY capsule 06/18/19 [Rx] HYDROcodone/Acet 10/325 mg [[place] 10-325 mg] 1 each PO Q6H 30 Days #120 tablet 06/18/19 [Rx] Insulin Glargine [Lantus] 10 unit SQ HS #0 06/18/19 [Rx] Magnesium Oxide [Mag-Ox] 400 mg PO TID tablet 06/18/19 [Rx] Metoprolol XL (24 HR) Succ [Toprol Xl] 25 mg PO DAILY tab.er.24h 06/18/19 [Rx] Allergies/Adverse Reactions: Allergy/AdvReac Type Severity Reaction Status Date / Time oxycodone [Oxycodone] Allergy Vomiting Verified 04/22/19 13:52 amitriptyline AdvReac See Verified 04/22/19 13:52 Comments morphine AdvReac See Verified 04/22/19 13:51 Comments Date of admission: 06/14/19 15:29 Primary care physician: Odalys Moura CNP Consults: 06/13/19 20:01 Consult to Nutrition [CONS] Routine Comment: Consulting Provider: NUTRITION Reason for Dietary Consult: Diet Education Other Other:: patient reports loss lbs in 5 weeks due to loss of appetite Consult to Director Of Sustainability [CONS] Routine Reason for SW Consult: Patient espress need for help at home and has been trying to get connected with [facility]. Has had several falls at home 06/14/19 15:29 Consult to Occupational Therapy [CONS] Routine Comment: Evaluate, develop and implement POC Reason for Consult: Multiple falls Does patient have active BEDREST order?: No Is patient medically & hemodynamically stable?: Yes Patient assessed for mobility or mobilized this visit?: Yes Consult to Physical Therapy [CONS] Routine Comment: Evaluate, develop and implement POC Reason for Consult: Multiple falls Does patient have active BEDREST order?: No Is patient medically & hemodynamically stable?: Yes Patient assessed for mobility or mobilized this visit?: Yes - Constitutional Vitals: Temp Pulse Resp BP Pulse Ox 98.2 F 74 16 105/61 95 06/18/19 06:57 06/18/19 06:57 06/18/19 06:57 06/18/19 06:57 06/18/19 06:57 - Patient Status Disposition: Transfer SNF Condition: Fair - Discharge Instructions - Diet and Activity Activity: as per physical therapy Diet: diabetic diet
--- NOTE | 2019-06-18 11:30 | Physician Discharge Referral ---
ExtendedCare Referral Info Transfer To: [facility] Provider in Charge: Joseph Provider in Charge after Transfer: PCP (Joseph) - Diagnosis (1) Multiple falls Priority: Primary Status: Acute (2) Weakness Priority: Secondary Status: Acute (3) Lactic acidosis Priority: Secondary Status: Resolved (4) Anemia Priority: Secondary Status: Acute (5) Hypertension Priority: Secondary Status: Chronic (6) DM type 2 (diabetes mellitus, type 2) Priority: Secondary Status: Chronic (7) Seizure disorder Priority: Secondary Status: Chronic (8) Chronic low back pain Priority: Secondary Status: Chronic (9) Anxiety and depression Priority: Secondary Status: Chronic (10) Weight loss Priority: Secondary Status: Acute (11) Hypomagnesemia Priority: Secondary Status: Acute (12) Left hip pain Priority: Secondary Status: Acute Prognosis: Good Aware of Diagnosis: Patient Aware of Prognosis: Patient - Transfer Medications Prescriptions: HYDROcodone/Acet 10/325 mg [[place] 10-325 mg] 1 each PO Q6H 30 Days #120 tablet Home Medications: Aspirin [Lo-Dose Aspirin EC] 81 mg PO DAILY 04/25/16 [History] Divalproex (12 HR) [Depakote (12 HR)] 1,000 mg PO BID 04/25/16 [History] HYDROcodone/Acet 10/325 mg [[place] 10-325 mg] 1 tab PO QID PRN 04/25/16 [History] Metformin HCl [Glucophage] 1,000 mg PO BID 04/25/16 [History] Topiramate [Topamax] 100 mg PO BID 04/25/16 [History] FLUoxetine HCl [Prozac] 20 mg PO DAILY capsule 06/18/19 [Rx] HYDROcodone/Acet 10/325 mg [[place] 10-325 mg] 1 each PO Q6H 30 Days #120 tablet 0 06/18/19 [Rx] Insulin Glargine [Lantus] 10 unit SQ HS #0 06/18/19 [Rx] Magnesium Oxide [Mag-Ox] 400 mg PO TID tablet 06/18/19 [Rx] Metoprolol XL (24 HR) Succ [Toprol Xl] 25 mg PO DAILY tab.er.24h 06/18/19 [Rx] Allergies/Adverse Reactions: Allergy/AdvReac Type Severity Reaction Status Date / Time oxycodone [Oxycodone] Allergy Vomiting Verified 04/22/19 13:52 amitriptyline AdvReac See Verified 04/22/19 13:52 Comments morphine AdvReac See Verified 04/22/19 13:51 Comments - Respiratory Orders Smoking Cessation: Smoking cessation has been advised. For more information, call the [place] Tobacco Quit Line at 6-485-HQAD-NOW. - Lab Orders Lab Orders: Other (include drug levels w/frequency) (CBC with differential, BMP, and magnesium level in one week and monthly) - Advance Directives Code Status: Full Code - Mobility Orders Ambulate - Rehabiliation Orders Rehab Potential: Good Rehab Orders: Evaluation for Physical Therapy, Evaluation for Occupational Therapy - Diet Orders No Concentrated Sweets CERTIFICATION: I certify that the transfer of the above named patient to an Extended Care Facility is necessary for the continuing treatment of the diagnosis listed. The above information is true and accurate reflection of patient's current condition. Confidential - Redisclosure prohibited without a patient's written consent.
== END 2019-06-18 12:48 | DRG 641 ==
LOC: EMEROOPIK 16:39 → INPPIK 16:39
PROVIDERS: ADMIT Internal Medicine; ATTEND Internal Medicine

== ENCOUNTER 2019-12-27 11:52 | Observation (INO) ==
[2019-12-27 12:34] LABS: Basophils # 0.1 K/mcL (0.0-0.2); Basophils % 0.7 %; Eosinophils # 0.2 K/mcL (0.0-0.6); Eosinophils % 2.3 %; Hematocrit 31.9 % (35.3-44.9); Hemoglobin 10.2 g/dL (11.5-15.4); Immature Granulocytes % 1.7 % (0-4); Lymphocytes # 3.2 K/mcL (0.6-4.6); Lymphocytes % 36.2 %; Mean Corpuscular Hemoglobin 32.2 pg (28.0-33.3); Mean Corpuscular Volume 100.6 fL (83.0-100.0); Mean Platelet Volume 9.3 fL (9.4-12.4); Monocytes # 0.9 K/mcL (0.0-1.3); Monocytes % 10.4 %; Neutrophils # 4.3 K/mcL (1.6-8.9); Nucleated Red Blood Cells 0.2 /100 WBC (0); Platelet Count 256 K/mcL (140-400); Red Blood Count 3.17 M/mcL (3.82-4.97); Red Cell Distribution Width 15.7 % (11.5-14.5); Segmented Neutrophils % 48.7 %; White Blood Count 8.9 K/mcL (4.3-11.1)
[2019-12-27 12:42] LABS: INR 0.9; Prothrombin Time 10.5 Seconds (9.4-12.1)
[2019-12-27 12:49] LABS: Bilirubin,Urine Negative (Negative); Blood,Urine Negative (Negative); Clarity,Urine Slightly Cloudy (Clear); Glucose,Urine (UA) >=1000 mg/dL (Normal); Ketones,Urine 15 mg/dL (Negative); Leukocyte Esterase,Urine Negative (Negative); Nitrite,Urine Negative (Negative); PH,Urine 8.5 pH Units (5.0-8.0); Protein,Urine Negative (Neg-Trace); Urobilinogen,Urine Normal (Normal)
[2019-12-27 12:53] LABS: Alanine Aminotransferase 5 Units/L (7-52); Albumin 3.4 g/dL (3.5-5.7); Albumin/Globulin Ratio 1.2 (1.1-2.2); Alkaline Phosphatase 82 Units/L (34-104); Aspartate Amino Transferase 9 Units/L (13-39); BUN/Creatinine Ratio 26 (6-26); Bilirubin,Total 0.2 mg/dL (0.3-1.0); Blood Urea Nitrogen 21 mg/dL (6-20); Calcium 8.7 mg/dL (8.6-10.3); Carbon Dioxide 27 mEq/L (23-29); Chloride 100 mEq/L (98-107); Globulin 2.8 g/dL (2.4-3.5); Glucose 264 mg/dL (70-105); Magnesium 1.7 mg/dL (1.6-2.6); Osmolality,Calculated 292 (280-300); Potassium 4.6 mEq/L (3.5-5.1); Sodium 135 mEq/L (136-145); Total Protein 6.2 g/dL (6.4-8.9); Troponin I < 0.03 ng/mL (< 0.04); eGFR For African Americans > 60 (> 60); eGFR For Non-African Americans > 60 (> 60)
[2019-12-27 12:55] LABS: Amorphous Sediment,Urine Moderate per hpf (Few); Bacteria,Urine Few per hpf (None-Few); Color,Urine Light Yellow (Yellow); RBC,Urine 0-3 per hpf (0-3); Squamous Epithelial Cell,Urine Few per lpf (None-Few)
[2019-12-27] MEDS ORDERED: Azithromycin 500 MG in 0.9 % Sodium Chloride 250 ML IVPB ONE (13:09)
[2019-12-27] MEDS ORDERED: Ketorolac 30 MG/ML VIAL IVP ONE (13:09)
[2019-12-27] MEDS ORDERED: cefTRIAXone 1,000 MG in 0.9 % Sodium Chloride Mini Bag 100 ML IVPB ONE (13:09)
[2019-12-27] MEDS ORDERED: Isovue-370 500 ML BOTTLE IVP ONE (13:09)
[2019-12-27] MEDS ORDERED: 0.9 % Sodium Chloride 1,000 ML IV ONE (13:09)
[2019-12-27] MEDS ORDERED: Ondansetron 4 MG/2 ML VIAL IVP ONE (13:09)
[2019-12-27] MEDS ORDERED: Acetaminophen 325 MG TABLET PO PRN (14:13)
[2019-12-27] MEDS ORDERED: Naloxone 0.4 MG/ML INJ IVP PRN (14:13)
[2019-12-27] MEDS ORDERED: D5% in Water 1,000 ML IVC PRN (15:04)
[2019-12-27] MEDS ORDERED: *HR* Dextrose 50 % in Water (Vial) 50 ML VIAL IVP PRN (15:04)
[2019-12-27] MEDS ORDERED: Dextrose Gel 15 GM/37.5 ML TUBE PO PRN ×2 (15:04)
[2019-12-27] MEDS: Magnesium Oxide 400 MG TABLET PO SCH ×2 (16:27→20:34)
[2019-12-27] MEDS: 0.9 % Sodium Chloride 1,000 ML IVC SCH ×2 (16:28→18:03)
[2019-12-27] MEDS: Gabapentin 300 MG CAPSULE PO SCH ×2 (16:28→20:35)
[2019-12-27] MEDS: Divalproex (12 HR) 250 MG TABLET PO SCH (20:35)
[2019-12-27] MEDS: Topiramate 100 MG TABLET PO SCH (20:35)
[2019-12-27] MEDS: Insulin DETEMIR 100 UNIT/ML X5UNITS SQ SCH (20:35)
[2019-12-27] MEDS: *HR* HYDROcodone/Acet 10/325 mg TABLET PO PRN (21:28)
[2019-12-27 22:35] LABS: Adenovirus Not Detected (Not Detect); Bordetella Pertussis Not Detected (Not Detect); Chlamydophila pneumoniae Not Detected (Not Detect); Coronavirus 229E Not Detected (Not Detect); Coronavirus HKU1 Not Detected (Not Detect); Coronavirus NL63 Not Detected (Not Detect); Coronavirus OC43 Not Detected (Not Detect); Human Metapneumovirus Not Detected (Not Detect); Human Rhinovirus/Enterovirus Not Detected (Not Detect); Influenza A Subtype 2009 H1 Not Detected (Not Detect); Influenza B Not Detected (Not Detect); Mycoplasma pneumoniae Not Detected (Not Detect); Parainfluenza Virus 1 Not Detected (Not Detect); Parainfluenza Virus 2 Not Detected (Not Detect); Parainfluenza Virus 3 Not Detected (Not Detect); Parainfluenza Virus 4 Not Detected (Not Detect); Respiratory Syncytial Virus Not Detected (Not Detect)
[2019-12-28] MEDS: *HR* HYDROcodone/Acet 10/325 mg TABLET PO PRN ×4 (03:37→20:29)
[2019-12-28 05:46] LABS: Hematocrit 30.6 % (35.3-44.9); Hemoglobin 9.6 g/dL (11.5-15.4); Mean Corpuscular HGB Conc 31.4 g/dL (31.6-35.5); Mean Corpuscular Hemoglobin 32.4 pg (28.0-33.3); Mean Corpuscular Volume 103.4 fL (83.0-100.0); Mean Platelet Volume 9.7 fL (9.4-12.4); Platelet Count 226 K/mcL (140-400); Red Blood Count 2.96 M/mcL (3.82-4.97); Red Cell Distribution Width 15.9 % (11.5-14.5); White Blood Count 7.9 K/mcL (4.3-11.1)
[2019-12-28 07:27] LABS: BUN/Creatinine Ratio 29 (6-26); Blood Urea Nitrogen 27 mg/dL (6-20); Calcium 8.4 mg/dL (8.6-10.3); Carbon Dioxide 27 mEq/L (23-29); Chloride 111 mEq/L (98-107); Glucose 192 mg/dL (70-105); Osmolality,Calculated 306 (280-300); Potassium 5.2 mEq/L (3.5-5.1); Sodium 143 mEq/L (136-145); eGFR For African Americans > 60 (> 60); eGFR For Non-African Americans > 60 (> 60)
[2019-12-28] MEDS ORDERED: 0.9 % Sodium Chloride 1,000 ML IVC SCH (08:15)
[2019-12-28] MEDS: Nicotine 14 MG PATCH.TD24 TD SCH (08:47)
[2019-12-28] MEDS: Aspirin Enteric Coated 81 MG Tablet PO SCH (08:52)
[2019-12-28] MEDS: Metoprolol XL (24 HR) Succ 25 MG TAB.ER.24H PO SCH (08:52)
[2019-12-28] MEDS: Gabapentin 300 MG CAPSULE PO SCH ×3 (08:52→20:29)
[2019-12-28] MEDS: Topiramate 100 MG TABLET PO SCH ×2 (08:52→20:29)
[2019-12-28] MEDS: Divalproex (12 HR) 250 MG TABLET PO SCH ×2 (08:52→20:28)
[2019-12-28] MEDS: FLUoxetine 20 MG CAPSULE PO SCH (08:52)
[2019-12-28] MEDS: Magnesium Oxide 400 MG TABLET PO SCH ×3 (08:52→20:29)
[2019-12-28] MEDS ORDERED: Azithromycin 500 MG in 0.9 % Sodium Chloride 250 ML IVPB SCH (14:00)
[2019-12-28] MEDS ORDERED: cefTRIAXone 1,000 MG in Water for inj. (sterile) 10 ML IVP SCH (14:00)
[2019-12-28] MEDS: Insulin DETEMIR 100 UNIT/ML X5UNITS SQ SCH (20:32)
[2019-12-29] MEDS: *HR* HYDROcodone/Acet 10/325 mg TABLET PO PRN ×3 (02:58→19:48)
[2019-12-29 06:26] LABS: Hematocrit 31.5 % (35.3-44.9); Hemoglobin 9.9 g/dL (11.5-15.4); Mean Corpuscular HGB Conc 31.4 g/dL (31.6-35.5); Mean Corpuscular Hemoglobin 32.8 pg (28.0-33.3); Mean Corpuscular Volume 104.3 fL (83.0-100.0); Platelet Count 235 K/mcL (140-400); Red Blood Count 3.02 M/mcL (3.82-4.97); White Blood Count 9.1 K/mcL (4.3-11.1)
[2019-12-29 07:08] LABS: BUN/Creatinine Ratio 29 (6-26); Blood Urea Nitrogen 23 mg/dL (6-20); Calcium 8.6 mg/dL (8.6-10.3); Carbon Dioxide 24 mEq/L (23-29); Chloride 106 mEq/L (98-107); Glucose 190 mg/dL (70-105); Osmolality,Calculated 293 (280-300); Potassium 4.9 mEq/L (3.5-5.1); Sodium 137 mEq/L (136-145); eGFR For African Americans > 60 (> 60); eGFR For Non-African Americans > 60 (> 60)
[2019-12-29] MEDS: Aspirin Enteric Coated 81 MG Tablet PO SCH (08:43)
[2019-12-29] MEDS: Divalproex (12 HR) 250 MG TABLET PO SCH ×2 (08:43→19:49)
[2019-12-29] MEDS: Metoprolol XL (24 HR) Succ 25 MG TAB.ER.24H PO SCH (08:45)
[2019-12-29] MEDS: Gabapentin 300 MG CAPSULE PO SCH ×3 (08:45→19:49)
[2019-12-29] MEDS: Magnesium Oxide 400 MG TABLET PO SCH ×3 (08:45→19:49)
[2019-12-29] MEDS: Topiramate 100 MG TABLET PO SCH ×2 (08:46→19:48)
[2019-12-29] MEDS: Nicotine 14 MG PATCH.TD24 TD SCH (08:46)
[2019-12-29] MEDS: FLUoxetine 20 MG CAPSULE PO SCH (13:20)
[2019-12-29] MEDS: Insulin DETEMIR 100 UNIT/ML X5UNITS SQ SCH (20:17)
[2019-12-30] MEDS: *HR* HYDROcodone/Acet 10/325 mg TABLET PO PRN ×2 (02:38→20:17)
[2019-12-30 06:55] LABS: Hematocrit 31.7 % (35.3-44.9); Hemoglobin 10.2 g/dL (11.5-15.4); Mean Corpuscular HGB Conc 32.2 g/dL (31.6-35.5); Mean Corpuscular Hemoglobin 32.2 pg (28.0-33.3); Platelet Count 238 K/mcL (140-400); Red Blood Count 3.17 M/mcL (3.82-4.97); Red Cell Distribution Width 15.6 % (11.5-14.5); White Blood Count 6.6 K/mcL (4.3-11.1)
[2019-12-30 07:13] LABS: BUN/Creatinine Ratio 23 (6-26); Blood Urea Nitrogen 16 mg/dL (6-20); Calcium 8.5 mg/dL (8.6-10.3); Carbon Dioxide 24 mEq/L (23-29); Chloride 106 mEq/L (98-107); Glucose 130 mg/dL (70-105); Osmolality,Calculated 291 (280-300); Potassium 4.1 mEq/L (3.5-5.1); Sodium 139 mEq/L (136-145); eGFR For African Americans > 60 (> 60); eGFR For Non-African Americans > 60 (> 60)
[2019-12-30] MEDS: Nicotine 14 MG PATCH.TD24 TD SCH (08:17)
[2019-12-30] MEDS: Divalproex (12 HR) 250 MG TABLET PO SCH ×2 (08:17→20:20)
[2019-12-30] MEDS: Gabapentin 300 MG CAPSULE PO SCH ×3 (08:17→20:20)
[2019-12-30] MEDS: Magnesium Oxide 400 MG TABLET PO SCH ×3 (08:18→20:20)
[2019-12-30] MEDS: Aspirin Enteric Coated 81 MG Tablet PO SCH (08:18)
[2019-12-30] MEDS: FLUoxetine 20 MG CAPSULE PO SCH (08:18)
[2019-12-30] MEDS: Metoprolol XL (24 HR) Succ 25 MG TAB.ER.24H PO SCH (08:18)
[2019-12-30] MEDS: Topiramate 100 MG TABLET PO SCH ×2 (09:35→20:20)
[2019-12-30 11:27] LABS: Mycoplasma pneumoniae IgG 1.83 U/L (<=0.09)
[2019-12-30] MEDS: Azithromycin 500 MG in 0.9 % Sodium Chloride 250 ML IVPB SCH (16:01)
[2019-12-30] MEDS: Insulin DETEMIR 100 UNIT/ML X5UNITS SQ SCH (20:20)
[2019-12-31 06:21] LABS: Hematocrit 34.9 % (35.3-44.9); Hemoglobin 11.3 g/dL (11.5-15.4); Mean Corpuscular HGB Conc 32.4 g/dL (31.6-35.5); Mean Corpuscular Hemoglobin 32.1 pg (28.0-33.3); Mean Corpuscular Volume 99.1 fL (83.0-100.0); Mean Platelet Volume 9.6 fL (9.4-12.4); Platelet Count 294 K/mcL (140-400); Red Blood Count 3.52 M/mcL (3.82-4.97); Red Cell Distribution Width 15.6 % (11.5-14.5); White Blood Count 6.8 K/mcL (4.3-11.1)
[2019-12-31 06:40] LABS: BUN/Creatinine Ratio 19 (6-26); Blood Urea Nitrogen 15 mg/dL (6-20); Calcium 8.8 mg/dL (8.6-10.3); Carbon Dioxide 24 mEq/L (23-29); Chloride 107 mEq/L (98-107); Glucose 125 mg/dL (70-105); Osmolality,Calculated 292 (280-300); Sodium 140 mEq/L (136-145); eGFR For African Americans > 60 (> 60); eGFR For Non-African Americans > 60 (> 60)
[2019-12-31] MEDS: Divalproex (12 HR) 250 MG TABLET PO SCH (10:16)
[2019-12-31] MEDS: Magnesium Oxide 400 MG TABLET PO SCH ×2 (10:16→16:42)
[2019-12-31] MEDS: Aspirin Enteric Coated 81 MG Tablet PO SCH (10:16)
[2019-12-31] MEDS: *HR* HYDROcodone/Acet 10/325 mg TABLET PO PRN ×2 (10:16→16:42)
[2019-12-31] MEDS: FLUoxetine 20 MG CAPSULE PO SCH (10:16)
[2019-12-31] MEDS: Nicotine 14 MG PATCH.TD24 TD SCH (10:16)
[2019-12-31] MEDS: Topiramate 100 MG TABLET PO SCH (10:16)
[2019-12-31] MEDS: Gabapentin 300 MG CAPSULE PO SCH ×2 (10:16→16:42)
[2019-12-31] MEDS: Metoprolol XL (24 HR) Succ 25 MG TAB.ER.24H PO SCH (10:16)
[2019-12-31 14:43] VITALS: BP 115/69
[2019-12-31] MEDS: Azithromycin 500 MG in 0.9 % Sodium Chloride 250 ML IVPB SCH (16:42)
== END 2019-12-31 18:10 | disposition home health service (06) ==
LOC: INPPIK 11:52 → EMEROOPIK 11:52 → INPPIK 14:45
PROVIDERS: ADMIT Family Medicine; ATTEND Family Medicine